=== PATIENT | female | born 1980 | race African-American/Black ===

== ENCOUNTER 2018-11-07 06:00 | Emergency (ER) | payer SELFPAY ==
[2018-11-07] MEDS ORDERED: ASPIRIN 81 MG TABLET, CHEWABLE PO ONE (06:57)
[2018-11-07 07:11] LABS: ABSOLUTE BASOPHILS # (AUTO) 0.1 10^3/uL (0.0-0.2); ABSOLUTE EOSINOPHILS # (AUTO) 0.1 10^3/uL (0.0-0.6); ABSOLUTE LYMPHOCYTES (AUTO) 1.7 10^3/uL (0.5-4.7); ABSOLUTE MONOCYTES (AUTO) 0.4 10^3/uL (0.1-1.4); ABSOLUTE NEUT (AUTO) 5.9 10^3/uL (1.7-8.2); BASOPHILS % (AUTO) 0.7 % (0-2); EOSINOPHILS % (AUTO) 1.2 % (0-6); HEMATOCRIT 36.5 % (36.0-47.0); HEMOGLOBIN 12.5 g/dL (12.0-15.5); LYMPHOCYTES % (AUTO) 20.8 % (13-45); MEAN CORPUSCULAR HEMOGLOBIN 26.1 pg (27.0-33.4); MEAN CORPUSCULAR HGB CONC 34.2 g/dL (32.0-36.0); MEAN CORPUSCULAR VOLUME 76 fl (80-97); MONOCYTES % (AUTO) 4.7 % (3-13); PLATELET COUNT 250 10^3/uL (150-450); RED BLOOD COUNT 4.78 10^6/uL (3.72-5.28); RED CELL DISTRIBUTION WIDTH 13.3 % (11.5-14.0); SEGMENTED NEUTROPHILS % (AUTO) 72.6 % (42-78); TOTAL CELLS COUNTED % (AUTO) 100 %; WHITE BLOOD COUNT 8.2 10^3/uL (4.0-10.5)
--- NOTE | 2018-11-07 07:28 | ER Document Report ---
ED Cardiac - General Chief Complaint: Palpitations Stated Complaint: HEART PALPITATIONS Time Seen by Provider: 11/07/18 07:06 Mode of Arrival: Ambulatory Information source: Patient, [facility] Records Notes: This 38-year-old female patient comes emergency room complaining of palpitations. She noted yesterday morning when she got up she was having a fluttering in the chest and palpitations. Patient did stop before going to work, and then came back after she got home from work later that day. They have been occurring off and on since then. She is currently on metoprolol succinate 25 mg once daily, HCTZ 12.5 mg once daily, and amlodipine probably 10 mg once daily. She has run out of the aml odipine for the past week. She reports several months ago she had episode of her heart racing and ir regular, at that time she had run out of her metoprolol. Patient reports she takes her medications in the morning, but has not taken them yet today. At this time her heart rate is about 88, she has an occasional PVC and feels that as a flutter or flip-flop in her chest. The patient will be instructed to take her metoprolol and hydrochlorothiazide at this time. TRAVEL OUTSIDE OF THE [place] IN LAST 30 DAYS: No - Related Data Allergies/Adverse Reactions: No Known Allergies Allergy (Verified 02/28/13 02:13) Past Medical History - General Information source: Patient - Social History Smoking Status: Never Smoker Cigarette use (# per day): No Chew tobacco use (# tins/day): No Smoking Education Provided: No Frequency of alcohol use: None Occupation: Works at [employer] Lives with: Family Family History: None Patient has suicidal ideation: No Patient has homicidal ideation: No - Past Medical History Cardiac Medical History: Reports: Hx Hypertension Past Surgical History: Reports: Hx Section - Immunizations Hx Diphtheria, Pertussis, Tetanus Vaccination: Yes Review of Systems - Review of Systems Constitutional: No symptoms reported EENT: No symptoms reported Cardiovascular: No symptoms reported Respiratory: No symptoms reported Gastrointestinal: No symptoms reported Genitourinary: No symptoms reported Female Genitourinary: Last menstrual period - 10/25/2018 Musculoskeletal: No symptoms reported Skin: No symptoms reported Hematologic/Lymphatic: No symptoms reported Neurological/Psychological: No symptoms reported Physical Exam - Vital signs Vitals: Temp Pulse Resp BP Pulse Ox 98.7 F 87 17 154/94 H 100 11/07/18 06:18 11/07/18 06:18 11/07/18 06:18 11/07/18 06:18 11/07/18 06:18 Interpretation: Normal - General General appearance: Appears well, Alert In distress: None - HEENT Head: Normocephalic, Atraumatic Eyes: Normal Pupils: PERRL - Respiratory Respiratory status: No respiratory distress Breath sounds: Normal - Cardiovascular Rhythm: Regular Heart sounds: Normal auscultation Murmur: No - Abdominal Inspection: Normal Bowel sounds: Normal Tenderness: Nontender - Back Back: Normal - Extremities General upper extremity: Normal inspection General lower extremity: Normal inspection - Neurological Neuro grossly intact: Yes - Psychological Associated symptoms: Normal affect, Normal mood Course - Vital Signs Vital signs: Temp Pulse Resp BP Pulse Ox 98.7 F 87 21 H 146/93 H 100 11/07/18 06:18 11/07/18 06:18 11/07/18 08:01 11/07/18 07:01 11/07/18 08:01 - Laboratory Result Diagrams: 11/07/18 06:01 11/07/18 06:01 Laboratory results interpreted by me: 11/07/18 11/07/18 11/07/18 06:01 06:01 07:34 MCV 76 L MCH 26.1 L Potassium 3.1 L Urine Blood MODERATE H Ur Leukocyte Esterase TRACE H - EKG Interpretation by Ks EKG shows normal: Sinus rhythm, [place], Intervals, QRS Complexes, ST-T Waves Rate: Normal - 85 Rhythm: NSR, PVC's Discharge - Discharge Clinical Impression: Heart palpitations High blood pressure Qualifiers: Hypertension type: essential hypertension Qualified Code(s): I10 - Essential (primary) hypertension Condition: Stable Disposition: HOME, SELF-CARE Additional Instructions: Palpitations (Irregular/Rapid Heartrate) Irregular or rapid heartbeat is called "palpitation." To diagnose the cause of palpitation, we have to "catch it in the act" with an EKG. Sinus Tachycardia: This is a rapid (but NORMAL) rhythm that can be due to fever, pain, anxiety, lack of sleep, over-exertion, or drugs. Cold medications, caffeine, and diet pills are particularly likely to cause tachycardia. Usually, all that's required is rest, reassurance, and avoiding caffeine, alcohol, nicotine, and unnecessary medicines. Paroxysmal Atrial Tachycardia (PAT): This abnormally rapid heartbeat is caused by a "short circuit" in the electrical system of the heart. It is not dangerous, unless other heart disease is present. These attacks of PAT may occur occasionally for years. Medication is available for treatment. Paroxysmal Atrial Fibrillation or Atrial Flutter: This is irregular electrical activity in the upper heart chamber. These abnormal rhythms often occur with valve disease or in hearts damaged by hardening of the arteries. These rhythms usually require further testing, for example a cardiac echo. Premature Beats: Extra beats occur more commonly after caffeine, nicotine, alcohol, cold pills, diet pills. Emotional stress or fatigue also provoke them. Extra beats are only dangerous when heart disease is present. They usually need no treatment. If they're frequent, or if evidence of heart disease develops, medication can be given to suppress them. If we were unable to "catch" the palpitations on EKG, you should try to get an EKG immediately if the symptoms begin again. Contact the physician at once if you develop persistent lightheadedness, shortness of breath, chest pain, or swelling of the ankles. Your EKG did show premature ventricular contraction also called a PVC. This would give you the feeling that your heart was fluttering or flip-flopping. There was no other rhythm disturbance noted while watching you on a monitor for well over an hour. Increase your metoprolol dose to twice daily. This should help reduce the frequency of your irregular heartbeats, and help with your blood pressure. Drink plenty of fluids, get plenty of rest, and avoid caffeine, diet pills, or any other stimulant type medications. Follow-up with your primary care provider next week for recheck. RETURN TO THE EMERGENCY ROOM IF ANY NEW OR WORSENING SYMPTOMS.
--- NOTE | 2018-11-07 07:48 | RADIOLOGY REPORT (SQ) ---
EXAM DESCRIPTION: X-ray single view chest. CLINICAL HISTORY: 38 years Female, CP COMPARISON: 12/27/2010 TECHNIQUE: Single portable x-ray view of the chest performed on 11/07/2018 at 7:29 AM FINDINGS: The lungs are well expanded and are clear. There is no evidence of a pneumothorax. The cardiac silhouette is normal in size and configuration. The mediastinal contours are normal. No acute osseous abnormality is identified. No focal soft tissue abnormalities are seen. Lines and tubes: None. IMPRESSION: No evidence of acute intrathoracic disease.
[2018-11-07 07:55] LABS: ALANINE AMINOTRANSFERASE 21 U/L (9-52); ALBUMIN 4.1 g/dL (3.5-5.0); ALKALINE PHOSPHATASE 60 U/L (38-126); ANION GAP 10 (5-19); ASPARTATE AMINO TRANSFERASE 17 U/L (14-36); BILIRUBIN,DIRECT 0.3 mg/dL (0.0-0.4); BILIRUBIN,TOTAL 0.4 mg/dL (0.2-1.3); BLOOD UREA NITROGEN 12 mg/dL (7-20); CALCIUM 9.7 mg/dL (8.4-10.2); CARBON DIOXIDE 29 mmol/L (22-30); CHLORIDE 101 mmol/L (98-107); CREATINE KINASE 74 U/L (30-135); GLUCOSE 105 mg/dL (75-110); POTASSIUM 3.1 mmol/L (3.6-5.0); SODIUM 140.3 mmol/L (137-145); TOTAL PROTEIN 7.6 g/dL (6.3-8.2)
[2018-11-07 07:59] LABS: APPEARANCE,URINE CLEAR; BILIRUBIN,URINE NEGATIVE (NEGATIVE); COLOR,URINE STRAW; GLUCOSE, URINE NEGATIVE (NEGATIVE); KETONES,URINE NEGATIVE (NEGATIVE); LEUKOCYTE ESTERASE,URINE TRACE (NEGATIVE); NITRITE,URINE NEGATIVE (NEGATIVE); PROTEIN,URINE NEGATIVE (NEGATIVE); URINE SPECIFIC GRAVITY 1.004; UROBILINOGEN,URINE NEGATIVE mg/dL (<2.0)
[2018-11-07 08:05] LABS: CREATINE KINASE MB 0.37 ng/mL (<4.55); TROPONIN I < 0.012 ng/mL
[2018-11-07 09:17] VITALS: BP 147/99
--- NOTE | 2018-11-07 23:48 | EKG REPORT ---
SEVERITY:- OTHERWISE NORMAL ECG - SINUS RHYTHM VENTRICULAR PREMATURE COMPLEX : Confirmed by: Gemma Stock MD 07-Nov-2018 23:47:39
== END 2018-11-07 09:16 | disposition home or self-care (01) ==
LOC: ER 06:00
DX: R00.2 Palpitations (principal); I10 Essential (primary) hypertension; Z79.899 Other long term (current) drug therapy
CPT/HCPCS: 36415; 71045; 80053; 81001; 82550; 82553; 83735; 84484; 84703; 85025; 93005; 93010; 99285

== ENCOUNTER 2019-08-17 08:42 | Emergency (ER) | payer SELFPAY ==
--- NOTE | 2019-08-17 08:50 | ER Document Report ---
ED General - General Chief Complaint: Chest Pain Stated Complaint: CHEST PAIN Time Seen by Provider: 08/17/19 08:50 TRAVEL OUTSIDE OF THE [place] IN LAST 30 DAYS: No - HPI Patient complains to provider of: Palpitations Notes: 39-year-old female with history of SVT presents with severe palpitations at home. Patient woke up in her normal state of health took her daughter to school when she got back home she laid down. Patient suddenly felt her heart "racing". Contacted EMS. EMS arrived to find patient heart rate greater than 170. IV established give IV push dose 6 mg of adenosine. Quickly patient returns to sinus tach rhythm. Patient has no symptoms at this time says she feels markedly improved. Patient has not had an episode of SVT in about a year. She takes daily metoprolol 25 mg but was told several months ago they believe she has to go up on her metoprolol but they never changed her prescription. Denies fever chills cough or chest pain. - Related Data Allergies/Adverse Reactions: No Known Allergies Allergy (Verified 02/28/13 02:13) Past Medical History - Social History Smoking Status: Unknown if Ever Smoked Family History: None - Past Medical History Cardiac Medical History: Reports: Hx Hypertension Renal/ Medical History: Denies: Hx Peritoneal Dialysis Past Surgical History: Reports: Hx Section - Immunizations Hx Diphtheria, Pertussis, Tetanus Vaccination: Yes Review of Systems - Review of Systems Notes: REVIEW OF SYSTEMS: CONSTITUTIONAL: -fevers, -chills EENT: -eye pain, -difficulty swallowing, -nasal congestion CARDIOVASCULAR: -chest pain, -syncope. RESPIRATORY: -cough, -SOB GASTROINTESTINAL: -abdominal pain, -nausea, -vomiting, -diarrhea GENITOURINARY: -dysuria, -hematuria MUSCULOSKELETAL: -back pain, -neck pain SKIN: -rash or skin lesions. HEMATOLOGIC: -easy bruising or bleeding. LYMPHATIC: -swollen, enlarged glands. NEUROLOGICAL: -altered mental status or loss of consciousness, -headache, - neurologic symptoms PSYCHIATRIC: -anxiety, -depression. ALL OTHER SYSTEMS REVIEWED AND NEGATIVE. Physical Exam - Vital signs Vitals: Resp Pulse Ox 19 97 08/17/19 08:52 08/17/19 08:52 - Notes Notes: PHYSICAL EXAMINATION: GENERAL: Well-appearing, well-nourished and in no acute distress. HEAD: Atraumatic, normocephalic. EYES: Pupils equal round and reactive to light, extraocular movements intact, sclera anicteric, conjunctiva are normal. ENT: nares patent, oropharynx clear without exudates. Moist mucous membranes. NECK: Normal range of motion, supple without lymphadenopathy LUNGS: Breath sounds clear to auscultation bilaterally and equal. No wheezes rales or rhonchi. HEART: Tachycardia and rhythm without murmurs ABDOMEN: Soft, nontender, normoactive bowel sounds. No guarding, no rebound. No masses appreciated. EXTREMITIES: Normal range of motion, no pitting or edema. No cyanosis. NEUROLOGICAL: Cranial nerves grossly intact. Normal speech, normal gait. N ormal sensory and motor exams. PSYCH: Normal mood, normal affect. SKIN: Warm, Dry, normal turgor, no rashes or lesions noted. Course - Re-evaluation Re-evalutation: 08/17/19 09:09 Well-appearing 39-year-old female presents now with resolved episode of SVT. Patient will receive fluid resuscitation IV metoprolol. Mild tachycardia presents EKG is no ischemic changes. 08/17/19 10:38 Of lab work-up shows no gross abnormalities negative troponin, lites within normal limits. Patient be encouraged to double up on her daily metoprolol follow-up PCP and cardiology return if any worsening or changes. - Vital Signs Vital signs: Temp Pulse Resp BP Pulse Ox 21 H 160/120 H 98 08/17/19 08:53 08/17/19 08:53 08/17/19 08:53 - Laboratory Result Diagrams: 08/17/19 09:22 08/17/19 09:22 Laboratory results interpreted by me: 08/17/19 08/17/19 09:22 09:22 MCV 77 L MCH 25.9 L Potassium 3.5 L - EKG Interpretation by Me Additional EKG results interpreted by me: 08/17/19 09:09 Sinus tachycardia, no ST elevations or depressions, no pathologic T wave inversions, normal IA interval, normal QRS Discharge - Discharge Clinical Impression: SVT (supraventricular tachycardia) Condition: Stable Disposition: HOME, SELF-CARE Instructions: Paroxysmal Supraventricular Tachycardia ([facility]) Additional Instructions: Increase your metoprolol to 50 mg daily follow-up cardiology and PCP
[2019-08-17] MEDS ORDERED: NORMAL SALINE 1000 ML 1,000 ML IV ONE (09:01)
[2019-08-17] MEDS ORDERED: METOPROLOL TARTRATE PF/INJ 5 MG/5 ML SDV IV ONE (09:05)
[2019-08-17 09:41] LABS: ABSOLUTE BASOPHILS # (AUTO) 0.1 10^3/uL (0.0-0.2); ABSOLUTE EOSINOPHILS # (AUTO) 0.2 10^3/uL (0.0-0.6); ABSOLUTE LYMPHOCYTES (AUTO) 2.1 10^3/uL (0.5-4.7); ABSOLUTE MONOCYTES (AUTO) 0.5 10^3/uL (0.1-1.4); BASOPHILS % (AUTO) 0.7 % (0-2); EOSINOPHILS % (AUTO) 2.1 % (0-6); HEMOGLOBIN 12.9 g/dL (12.0-15.5); LYMPHOCYTES % (AUTO) 23.9 % (13-45); MEAN CORPUSCULAR HEMOGLOBIN 25.9 pg (27.0-33.4); MEAN CORPUSCULAR HGB CONC 33.9 g/dL (32.0-36.0); MEAN CORPUSCULAR VOLUME 77 fl (80-97); MONOCYTES % (AUTO) 5.8 % (3-13); PLATELET COUNT 258 10^3/uL (150-450); RED BLOOD COUNT 4.96 10^6/uL (3.72-5.28); RED CELL DISTRIBUTION WIDTH 13.6 % (11.5-14.0); SEGMENTED NEUTROPHILS % (AUTO) 67.5 % (42-78); TOTAL CELLS COUNTED % (AUTO) 100 %; WHITE BLOOD COUNT 8.9 10^3/uL (4.0-10.5)
[2019-08-17 09:57] LABS: ANION GAP 10 (5-19); BLOOD UREA NITROGEN 14 mg/dL (7-20); CALCIUM 9.4 mg/dL (8.4-10.2); CARBON DIOXIDE 28 mmol/L (22-30); CHLORIDE 101 mmol/L (98-107); GLUCOSE 101 mg/dL (75-110); POTASSIUM 3.5 mmol/L (3.6-5.0)
[2019-08-17 10:10] LABS: TROPONIN I 0.017 ng/mL
[2019-08-17 11:37] VITALS: BP 165/87
--- NOTE | 2019-08-17 12:06 | EKG REPORT ---
SEVERITY:- ABNORMAL ECG - SINUS TACHYCARDIA LEFT VENTRICULAR HYPERTROPHY : Confirmed by: Fracisco Jordan 17-Aug-2019 12:05:15
== END 2019-08-17 11:35 | disposition home or self-care (01) ==
LOC: ER 08:42
DX: I47.1 Supraventricular tachycardia (principal); I10 Essential (primary) hypertension; Z79.899 Other long term (current) drug therapy
CPT/HCPCS: 93005; 99285; 96361; 96374; 36415; 85025; 80048; 84484; 83880; 93010; J3490; J7030

== ENCOUNTER 2019-09-14 17:16 | Emergency (ER) | payer SELFPAY ==
--- NOTE | 2019-09-14 17:32 | ER Document Report ---
ED Medical Screen (RME) - General Chief Complaint: OB Problem (<20wks) Stated Complaint: VAGINAL BLEEDING,ABDOMINAL PAIN Time Seen by Provider: 09/14/19 17:26 Notes: HPI: 39-year-old female who is a G2, approximately 7 weeks gestation by dates presenting for vaginal bleeding this afternoon. Started with slight spotting this morning which stopped and then began again with darker blood this afternoon accompanied by some cramping. Denies back pain. Has not seen [employer] yet. Patient went to the health department today. Patient states that she does have a history of high blood pressure she is on metoprolol and HCTZ has not yet seen OB to discuss whether she should continue these medications or switch to something different. She states she has been taking her medications consistently I have greeted and performed a rapid initial assessment of this patient. A comprehensive ED assessment and evaluation of the patient, analysis of test results and completion of the medical decision making process will be conducted by additional ED providers PHYSICAL EXAMINATION: Patient is moderately hypertensive. Lung sounds are clear to auscultation regular rate and rhythm. No pelvic pain on palpation of the abdomen limited exam secondary to positioning in triage. exam deferred in triage I have greeted and performed a rapid initial assessment of this patient. A comprehensive ED assessment and evaluation of the patient, analysis of test results and completion of medical decision making process will be conducted by an additional ED providers. TRAVEL OUTSIDE OF THE [place] IN LAST 30 DAYS: No - Related Data Allergies/Adverse Reactions: No Known Allergies Allergy (Verified 09/14/19 17:25) Past Medical History - Social History Chew tobacco use (# tins/day): No Frequency of alcohol use: None Drug Abuse: None - Past Medical History Cardiac Medical History: Reports: Hx Hypertension Renal/ Medical History: Denies: Hx Peritoneal Dialysis Past Surgical History: Reports: Hx Section - Immunizations Hx Diphtheria, Pertussis, Tetanus Vaccination: Yes Physical Exam - Vital signs Vitals: Temp Pulse Resp BP Pulse Ox 98.1 F 87 16 180/114 H 100 09/14/19 17:20 09/14/19 17:20 09/14/19 17:20 09/14/19 17:20 09/14/19 17:20 Course - Vital Signs Vital signs: Temp Pulse Resp BP Pulse Ox 98.1 F 87 16 158/105 H 100 09/14/19 17:20 09/14/19 17:20 09/14/19 17:20 09/14/19 17:22 09/14/19 17:20
[2019-09-14 18:11] LABS: ABSOLUTE EOSINOPHILS # (AUTO) 0.2 10^3/uL (0.0-0.6); ABSOLUTE LYMPHOCYTES (AUTO) 2.4 10^3/uL (0.5-4.7); ABSOLUTE MONOCYTES (AUTO) 0.5 10^3/uL (0.1-1.4); ABSOLUTE NEUT (AUTO) 7.2 10^3/uL (1.7-8.2); BASOPHILS % (AUTO) 0.4 % (0-2); EOSINOPHILS % (AUTO) 1.7 % (0-6); HEMATOCRIT 37.3 % (36.0-47.0); HEMOGLOBIN 12.9 g/dL (12.0-15.5); LYMPHOCYTES % (AUTO) 23.3 % (13-45); MEAN CORPUSCULAR HEMOGLOBIN 26.6 pg (27.0-33.4); MEAN CORPUSCULAR HGB CONC 34.7 g/dL (32.0-36.0); MEAN CORPUSCULAR VOLUME 77 fl (80-97); MONOCYTES % (AUTO) 4.8 % (3-13); PLATELET COUNT 247 10^3/uL (150-450); RED BLOOD COUNT 4.86 10^6/uL (3.72-5.28); RED CELL DISTRIBUTION WIDTH 14.3 % (11.5-14.0); SEGMENTED NEUTROPHILS % (AUTO) 69.8 % (42-78); TOTAL CELLS COUNTED % (AUTO) 100 %; WHITE BLOOD COUNT 10.3 10^3/uL (4.0-10.5)
[2019-09-14 18:22] LABS: APPEARANCE,URINE CLOUDY; BILIRUBIN,URINE NEGATIVE (NEGATIVE); COLOR,URINE RED; GLUCOSE, URINE NEGATIVE (NEGATIVE); KETONES,URINE NEGATIVE (NEGATIVE); LEUKOCYTE ESTERASE,URINE LARGE (NEGATIVE); NITRITE,URINE NEGATIVE (NEGATIVE); PROTEIN,URINE 100 mg/dL (NEGATIVE); URINE SPECIFIC GRAVITY 1.008; UROBILINOGEN,URINE NEGATIVE mg/dL (<2.0)
[2019-09-14 18:30] LABS: ALBUMIN 4.6 g/dL (3.5-5.0); ALKALINE PHOSPHATASE 61 U/L (38-126); ANION GAP 10 (5-19); ASPARTATE AMINO TRANSFERASE 21 U/L (14-36); BILIRUBIN,DIRECT 0.2 mg/dL (0.0-0.4); BILIRUBIN,TOTAL 0.4 mg/dL (0.2-1.3); BLOOD UREA NITROGEN 12 mg/dL (7-20); CALCIUM 10.3 mg/dL (8.4-10.2); CARBON DIOXIDE 26 mmol/L (22-30); CHLORIDE 99 mmol/L (98-107); GLUCOSE 91 mg/dL (75-110); POTASSIUM 3.2 mmol/L (3.6-5.0); TOTAL PROTEIN 8.3 g/dL (6.3-8.2)
--- NOTE | 2019-09-14 18:40 | ER Document Report ---
ED GI/ - General Chief Complaint: OB Problem (<20wks) Stated Complaint: VAGINAL BLEEDING,ABDOMINAL PAIN Time Seen by Provider: 09/14/19 17:26 Primary Care Provider: [facility] [Provider Group] - Follow up as needed Mode of Arrival: Ambulatory Information source: Patient Notes: 39-year-old female presents to ED for complaint of pelvic pain and vaginal bleeding. She states she is 7 weeks according to dates. She has had positive home test has not been to an [employer] as yet. She is 2 para 1. She states about a week or so ago she had some spotting that stopped. She states this afternoon she had some spotting and cramping but the bleeding and cramping have stopped. She states only past medical history is high blood pressure which she takes metoprolol and hydrochlorothiazide for. Patient is alert oriented respirations regular nonlabored speaking in full sentences. TRAVEL OUTSIDE OF THE [place] IN LAST 30 DAYS: No - HPI Patient complains to provider of: Pelvic pain, , Vaginal bleeding Onset: Other - States she had some spotting about a week or so ago and then started this afternoon Timing/Duration: Intermittent Quality of pain: Cramping Severity at maximum: Mild Severity in ED: None Pain Level: Denies Vaginal bleeding (Compared to normal period): Spotting, Dark brown Menstrual period history: Associated symptoms: Other - Pelvic pain and vaginal spotting Exacerbated by: Denies Relieved by: Denies Similar symptoms previously: Yes Recently seen / treated by doctor: No - Related Data Allergies/Adverse Reactions: No Known Allergies Allergy (Verified 09/14/19 17:25) Past Medical History - General Information source: Patient - Social History Smoking Status: Former Smoker Chew tobacco use (# tins/day): No Frequency of alcohol use: None Drug Abuse: None Family History: None Patient has suicidal ideation: No Patient has homicidal ideation: No - Past Medical History Cardiac Medical History: Reports: Hx Hypertension Pulmonary Medical History: Reports: None EENT Medical History: Reports: None Neurological Medical History: Reports: None Endocrine Medical History: Reports: None Renal/ Medical History: Reports: None Malignancy Medical History: Reports: None GI Medical History: Reports: None Musculoskeletal Medical History: Reports None Skin Medical History: Reports None Psychiatric Medical History: Reports: None Traumatic Medical History: Reports: None Infectious Medical History: Reports: None Surgical Hx: Negative Past Surgical History: Reports: None - Immunizations Hx Diphtheria, Pertussis, Tetanus Vaccination: Yes Review of Systems - Review of Systems Constitutional: No symptoms reported EENT: No symptoms reported Cardiovascular: No symptoms reported Respiratory: No symptoms reported Gastrointestinal: No symptoms reported Genitourinary: No symptoms reported Female Genitourinary: , Vaginal bleeding Musculoskeletal: No symptoms reported Skin: No symptoms reported Hematologic/Lymphatic: No symptoms reported Neurological/Psychological: No symptoms reported Physical Exam - Vital signs Vitals: Temp Pulse Resp BP Pulse Ox 98.1 F 87 16 180/114 H 100 09/14/19 17:20 09/14/19 17:20 09/14/19 17:20 09/14/19 17:20 09/14/19 17:20 Interpretation: Normal - General General appearance: Appears well, Alert - HEENT Head: Normocephalic, Atraumatic Eyes: Normal Pupils: PERRL - Respiratory Respiratory status: No respiratory distress Chest status: Nontender Breath sounds: Normal Chest palpation: Normal - Cardiovascular Rhythm: Regular Heart sounds: Normal auscultation Murmur: No - Abdominal Inspection: Normal Distension: No distension Bowel sounds: Normal Tenderness: Nontender Organomegaly: No organomegaly - Genitourinary External exam: Normal Speculum exam: Cervix closed Vaginal bleeding: Mild Bimanuel exam: Normal - Back Back: Normal, Nontender - Extremities General upper extremity: Normal inspection, Nontender, Normal color, Normal ROM, Normal temperature General lower extremity: Normal inspection, Nontender, Normal color, Normal ROM, Normal temperature, Normal weight bearing. No: Anuja's sign - Neurological Neuro grossly intact: Yes Cognition: Normal Orientation: AAOx4 Tammy Coma Scale Eye Opening: Spontaneous Tammy Coma Scale Verbal: Oriented Tammy Coma Scale Motor: Obeys Commands [place] Coma Scale Total: 15 Speech: Normal Motor strength normal: LUE, RUE, LLE, RLE Sensory: Normal - Psychological Associated symptoms: Normal affect, Normal mood - Skin Skin Temperature: Warm Skin Moisture: Dry Skin Color: Normal Course - Re-evaluation Re-evalutation: 09/14/19 22:50 Discussed ultrasound and labs with patient and written reports of labs and ultrasound given to patient to follow-up with her primary care and PHYSICIAN. Patient is a high risk at 39 years old with multiple fibroids and a subchorionic bleed. I have instructed her that she needs to follow-up with [employer] or the health department as soon as possible. Patient was able to verbalize understanding and agreement with this treatment plan. Patient also has elevated blood pressure that she needs to get under control. She states she has not been to a doctor in about a year. She does verbalize understanding that she needs to be seen promptly. Patient states she will call the health department tomorrow to get into see someone for the blood pressure and the high risk . - Vital Signs Vital signs: Temp Pulse Resp BP Pulse Ox 98.3 F 77 18 158/100 H 100 09/14/19 20:34 09/14/19 20:34 09/14/19 20:34 09/14/19 20:34 09/14/19 20:34 - Laboratory Result Diagrams: 09/14/19 17:34 09/14/19 17:34 Laboratory results interpreted by me: 09/14/19 09/14/19 09/14/19 17:34 17:34 17:34 MCV 77 L MCH 26.6 L RDW 14.3 H Sodium 134.9 L Potassium 3.2 L Calcium 10.3 H Total Protein 8.3 H Beta HCG, Quant 57314.00 H Urine Protein 100 H Urine Blood LARGE H Ur Leukocyte Esterase LARGE H - Diagnostic Test Radiology reviewed: Image reviewed, Reports reviewed Discharge - Discharge Clinical Impression: Vaginal bleeding affecting early High blood pressure Qualifiers: Hypertension type: unspecified Qualified Code(s): I10 - Essential (primary) hypertension Condition: Stable Disposition: HOME, SELF-CARE Instructions: [facility] [place] Additional Instructions: : You are . care is best started as early in as possible. If you're unsure about continuing this , you should discuss this with your physician or with international student advisor at [facility]. You should take only medications approved by your physician. Acetaminophen can safely be taken for minor pains. As a rule, medication for chronic conditions such as asthma or seizures can safely be continued. You should discuss with the physician every medicine you take. Any regular exercise program can be continued. Talk to your physician, however, before engaging in competitive or demanding sports. Alcohol, smoking, and "street drugs" are dangerous to your baby. Cocaine is especially dangerous. Don't use any illicit drugs! BLEEDING DURING EARLY : You have been evaluated for passing blood while . While we take this symptom very seriously, most women with your degree of bleeding will go on to have a perfectly normal baby. At this time, there is no indication that a miscarriage will occur. (A miscarriage occurs when the fetus is abnormal. There is no medicine or treatment to prevent it.) A more serious cause of bleeding is tubal (or ectopic) . An ultrasound usually can show whether the is in the uterus or in the tube. Sometimes in early , no fetus is seen. In this case, careful follow-up, including repeat blood tests and repeat ultrasound, is necessary. Do not douche or have sex for at least a week, or until OK'd by the doctor. Don't use tampons. Call the doctor or return for re-examination if there is an increase in bleeding or cramping, extreme weakness, fainting, new abdominal pain, fever, or passage of tissue. You are 39 years old and . You have a large subchorionic bleed at this time. You also have fibroids in your uterus. It is very important that you follow-up with an [employer] and a primary care doctor concerning your vaginal bleeding and your high blood pressure. He states you have been taking blood pressure medicine that your previous doctor has ordered you but has not seen you in over a year. It is very important that she get this blood pressure under control with this . Please also follow-up with the Medicaid and get this straightened out so you can go to the doctor. FOLLOW-UP CARE: If you have been referred to a physician for follow-up care, call the physicians office for an appointment as you were instructed or within the next two days. If you experience worsening or a significant change in your symptoms (very heavy bleeding with large clots of blood, passage of tissue, more severe abdominal / pelvic pain or cramping, feeling faint or severe weakness, fever, etc.), notify the physician immediately or return to the Emergency Department at any time for re-evaluation. OBSTETRIC-GYNECOLOGIC (OB-PHYSICIAN) PHYSICIANS IN [place]: [facility] [address] [place] [address] [phone] For active duty and dependents diagnosed with a threatened or miscarriage, you should follow up in the following manner: Standard patients who have a local civilian provider should follow up with that provider. Patients of the Family Practice Clinic should call your Team Nurse at 8:00 am the following morning for further instructions. If you are neither a Standard patient nor a patient of the Family Practice Clinic, you should follow up at the [facility] ([facility]). Patients already enrolled in the [facility], Prime patients not assigned to the Family Practice Clinic, and Active Duty patients not assigned to Family Practice Clinic should report to the [facility] Lab at 8:00 am the next morning that the [facility] is open and then you will be seen in the OB Clinic at 11:00 am. Forms: Elevated Blood Pressure, Return to Work Referrals: [facility] [Provider Group] - Follow up as needed
--- NOTE | 2019-09-14 18:46 | RADIOLOGY REPORT (SQ) ---
EXAM DESCRIPTION: U/S OB TRANSVAG W/DOPPLER IMAGES COMPLETED DATE/TIME: 09/14/2019 6:32 pm REASON FOR STUDY: vag bleeding COMPARISON: None. TECHNIQUE: Transvaginal static and realtime grayscale images acquired of the pelvis. Additional darrell cted spectral and color Doppler images recorded. All images stored on PACs. bHCG: Pending CLINICAL DATES: LMP 07/29/2019. 6 weeks 5 days. LIMITATIONS: None. FINDINGS: FETUS: Single Living intrauterine . ULTRASOUND EGA: 5 weeks 6 days ULTRASOUND ELVIE: 05/10/2020 EFW: Not applicable less than 20 weeks. CRL: 0.3 cm FHR: 122 beats per minute. SURVEY: Too early to assess. AMNIOTIC FLUID: Adequate amount. PLACENTA: Not yet developed due to early gestation. SUBCHORIONIC BLEED: Yes SIZE OF BLEED: 16 x 10 x 4 mm UTERUS: Multiple fibroids. The largest measures 6 cm. CERVICAL LENGTH: 2.6 cm Closed. RIGHT ADNEXA: Normal ovary with normal vascular flow. 2.8 x 2.1 x 1.8 cm. No adnexal free fluid. No adnexal masses. LEFT ADNEXA: Normal ovary with normal vascular flow. 3.1 x 2 x 2.3 cm. No adnexal free fluid. No adnexal masses. FREE FLUID: None. OTHER: No other significant finding. IMPRESSION: LIVING INTRAUTERINE . EGA 5 weeks 6 days. Trimester of : First trimester - 0 to 13 weeks. TECHNICAL DOCUMENTATION: JOB ID: [id number] 2010 [employer]- All Rights Reserved rev Reading location - IP/workstation name: [email or web address]
[2019-09-14 19:35] LABS: BACTERIA (WET MOUNT) 3+ BACTERIA SEEN; RBCS (WET MOUNT) 4+ RBCS SEEN; T.VAGINALIS (WET MOUNT) NO TRICHOMONAS SEEN; WBCS (WET MOUNT) 3+ WBCS SEEN; YEAST (WET MOUNT) NO YEAST SEEN
[2019-09-14 20:36] VITALS: BP 158/100
[2019-09-14 21:04] LABS: CHLAM PCR NOT DETECTED (NOT DETECT)
== END 2019-09-14 20:36 | disposition home or self-care (01) ==
LOC: ER 17:16
DX: O20.9 Hemorrhage in early pregnancy, unspecified (principal); O16.1 Unspecified maternal hypertension, first trimester; Z3A.01 Less than 8 weeks gestation of pregnancy
CPT/HCPCS: 36415; 76817; 80053; 81001; 84702; 85025; 86900; 86901; 87210; 87491; 87591; 93976; 99284

== ENCOUNTER 2019-10-04 05:30 | Emergency (ER) | payer MEDICAID ==
[2019-10-04 06:14] LABS: APPEARANCE,URINE SLIGHTLY-CLOUDY; BILIRUBIN,URINE NEGATIVE (NEGATIVE); COLOR,URINE YELLOW; GLUCOSE, URINE NEGATIVE (NEGATIVE); KETONES,URINE NEGATIVE (NEGATIVE); LEUKOCYTE ESTERASE,URINE MODERATE (NEGATIVE); NITRITE,URINE NEGATIVE (NEGATIVE); PROTEIN,URINE NEGATIVE (NEGATIVE); URINE SPECIFIC GRAVITY 1.018; UROBILINOGEN,URINE NEGATIVE mg/dL (<2.0)
[2019-10-04 06:46] LABS: ABSOLUTE EOSINOPHILS # (AUTO) 0.2 10^3/uL (0.0-0.6); ABSOLUTE LYMPHOCYTES (AUTO) 1.8 10^3/uL (0.5-4.7); ABSOLUTE MONOCYTES (AUTO) 0.5 10^3/uL (0.1-1.4); ABSOLUTE NEUT (AUTO) 6.4 10^3/uL (1.7-8.2); BASOPHILS % (AUTO) 0.4 % (0-2); EOSINOPHILS % (AUTO) 1.8 % (0-6); HEMATOCRIT 34.4 % (36.0-47.0); HEMOGLOBIN 11.9 g/dL (12.0-15.5); LYMPHOCYTES % (AUTO) 20.5 % (13-45); MEAN CORPUSCULAR HEMOGLOBIN 26.5 pg (27.0-33.4); MEAN CORPUSCULAR HGB CONC 34.5 g/dL (32.0-36.0); MEAN CORPUSCULAR VOLUME 77 fl (80-97); MONOCYTES % (AUTO) 5.5 % (3-13); PLATELET COUNT 201 10^3/uL (150-450); RED BLOOD COUNT 4.48 10^6/uL (3.72-5.28); RED CELL DISTRIBUTION WIDTH 14.8 % (11.5-14.0); SEGMENTED NEUTROPHILS % (AUTO) 71.8 % (42-78); TOTAL CELLS COUNTED % (AUTO) 100 %; WHITE BLOOD COUNT 8.9 10^3/uL (4.0-10.5)
[2019-10-04 07:03] LABS: ALKALINE PHOSPHATASE 50 U/L (38-126); ANION GAP 9 (5-19); ASPARTATE AMINO TRANSFERASE 16 U/L (14-36); BILIRUBIN,TOTAL 0.3 mg/dL (0.2-1.3); BLOOD UREA NITROGEN 16 mg/dL (7-20); CALCIUM 9.4 mg/dL (8.4-10.2); CARBON DIOXIDE 25 mmol/L (22-30); CHLORIDE 99 mmol/L (98-107); GLUCOSE 101 mg/dL (75-110); POTASSIUM 3.4 mmol/L (3.6-5.0); TOTAL PROTEIN 7.1 g/dL (6.3-8.2)
--- NOTE | 2019-10-04 07:11 | RADIOLOGY REPORT (SQ) ---
Ultrasound OB transvaginal on 10/04/2019 at 6:32 AM CLINICAL INDICATION: , vaginal bleeding COMPARISON: 09/14/2019 FINDINGS: Multiple sonographic images are obtained throughout the pelvis by transabdominal and transvaginal approach, both transverse and sagittal images are obtained. Uterus measures approximately 15.3 x 10.5 x 13 cm. Small amount of free fluid is noted in the pelvis. There is a single early intrauterine with a gestational sac, yolk sac and pole. Estimated gestational age by crown-rump length measurement is an approximate nine week one day gestation. Gestational sac shape is unremarkable. Gestation is too early for placental evaluation. Positive cardiac activity is noted with heart rate of 175 bpm. Adjacent to the gestational sac is a subchorionic hemorrhage measuring approximately 4.0 x 1.4 x 2.5 cm. There are multiple small heterogeneous hypoechoic areas in the uterine myometrium consistent with multiple small fibroids. Largest measures 3.4 cm in greatest diameter. Neither ovary is visualized. No adnexal mass or fluid collection is noted. IMPRESSION: 1. Single living approximately nine week one day intrauterine with adjacent subchorionic hemorrhage. 2. Multifibroid uterus.
--- NOTE | 2019-10-04 07:12 | ER Document Report ---
ED General - General Chief Complaint: OB Problem (<20wks) Stated Complaint: VAGINAL BLEEDING/ Time Seen by Provider: 10/04/19 05:53 Notes: 39-year-old G2, P1 female presents to the emergency department with chief complaint of vaginal bleeding. Patient states she is approximately 8 weeks and was seen here about 10 days ago for the same chief complaint. Transvaginal ultrasound then showed a living intrauterine with gestational age of 5 weeks and 6 days. There was a subchorionic bleed present. Patient states the bleeding subsided and then when she woke up this morning she started to have vaginal bleeding. No cramping, no abdominal pain. No abnormal discharge, no urinary symptoms, no fevers. TRAVEL OUTSIDE OF THE [place] IN LAST 30 DAYS: No - Related Data Allergies/Adverse Reactions: No Known Allergies Allergy (Verified 09/14/19 17:25) Home Medications: metoprolol, HCTZ Past Medical History - Social History Smoking Status: Never Smoker Family History: None Patient has suicidal ideation: No Patient has homicidal ideation: No - Past Medical History Cardiac Medical History: Reports: Hx Hypertension Renal/ Medical History: Denies: Hx Peritoneal Dialysis Past Surgical History: Reports: Hx Section - Immunizations Hx Diphtheria, Pertussis, Tetanus Vaccination: Yes Review of Systems - Review of Systems Constitutional: See HPI EENT: No symptoms reported Cardiovascular: No symptoms reported Respiratory: No symptoms reported Gastrointestinal: See HPI Genitourinary: See HPI Female Genitourinary: See HPI Musculoskeletal: No symptoms reported Skin: No symptoms reported Hematologic/Lymphatic: No symptoms reported Neurological/Psychological: No symptoms reported Physical Exam - Vital signs Vitals: Temp Pulse Resp BP Pulse Ox 98.5 F 92 16 177/116 H 100 10/04/19 05:35 10/04/19 05:35 10/04/19 05:35 10/04/19 05:35 10/04/19 05:35 - Notes Notes: PHYSICAL EXAMINATION: Reviewed vital signs and charting by RN GENERAL: Alert, interacts well. No acute distress. HEAD: Normocephalic, atraumatic. EYES: Pupils equal and round. Extraocular movements intact. ENT: Oral mucosa moist, tongue midline. NECK: Full range of motion. Trachea midline. LUNGS: Clear to auscultation bilaterally, no wheezes, rales, or rhonchi. No respiratory distress. HEART: Regular rate and rhythm. No murmur ABDOMEN: soft, non-tender. No distention. Bowel sounds present EXTREMITIES: Moves all 4 extremities spontaneously. No edema, No cyanosis. PSYCH: Normal affect, normal mood. SKIN: Warm, dry, normal turgor. No rashes or lesions noted. Course - Re-evaluation Re-evalutation: 10/04/19 07:11 She is well-appearing and nontoxic. Patient states that bleeding has mostly subsided and she described it as dark brown with no clots. Repeat transvaginal ultrasound with Doppler is obtained and lab work. Patient is O+ as a RhoGam panel was obtained at her last visit. 10/04/19 07:14 Urinalysis shows findings consistent with a urinary tract infection. Plan is to place patient on Keflex 500 mg every 12 hours for 7 days. Patient mildly hypokalemic at 3.4. I will give her 40 mEq of potassium p.o. All findings have been discussed with patient, patient understands and is in agreement with plan. She is stable for discharge with follow-up to her [employer]. - Vital Signs Vital signs: Temp Pulse Resp BP Pulse Ox 98.5 F 92 16 177/116 H 100 10/04/19 05:42 10/04/19 05:35 10/04/19 05:35 10/04/19 05:35 10/04/19 05:35 - Laboratory Result Diagrams: 10/04/19 06:14 10/04/19 06:14 Laboratory results interpreted by me: 10/04/19 10/04/19 10/04/19 05:50 06:14 06:14 Hgb 11.9 L Hct 34.4 L MCV 77 L MCH 26.5 L RDW 14.8 H Sodium 132.7 L Potassium 3.4 L Urine Blood LARGE H Ur Leukocyte Esterase MODERATE H Discharge - Discharge Clinical Impression: Vaginal bleeding during Urinary tract infection Qualifiers: Urinary tract infection type: acute cystitis Hematuria presence: with hematuria Qualified Code(s): N30.01 - Acute cystitis with hematuria Condition: Good Disposition: HOME, SELF-CARE Additional Instructions: Your ultrasound today shows a living intrauterine . Please follow closely with your primary care [employer]. Please return if you develop severe abdominal pain, bleeding that goes through more than 2 pads for more than 2 hours, pass out, or have any other symptoms that are concerning to you. Please follow-up closely with your OBGYN regarding todays visit. Your urine shows findings consistent with a urinary tract infection. Please take all the antibiotics as directed even if your symptoms have improved. Please follow-up with your primary care physician as needed. Return to emergency room if you develop fever >101F, persistent vomiting, become lethargic, have severe pain in your sides, or any other symptoms that are concerning to you.
[2019-10-04] MEDS ORDERED: CEPHALEXIN 500 MG CAPSULE PO ONE (07:14)
[2019-10-04] MEDS ORDERED: POTASSIUM CHLORIDE 10 MEQ TABLET.ER PO ONE (07:14)
[2019-10-04 07:40] VITALS: BP 142/98
== END 2019-10-04 07:39 | disposition home or self-care (01) ==
LOC: ER 05:30
DX: O46.91 Antepartum hemorrhage, unspecified, first trimester (principal); O23.11 Infections of bladder in pregnancy, first trimester; N30.01 Acute cystitis with hematuria; O16.1 Unspecified maternal hypertension, first trimester; Z3A.08 8 weeks gestation of pregnancy
CPT/HCPCS: 36415; 76817; 80053; 81001; 84702; 85025; 93976; 99284

== ENCOUNTER 2019-10-07 14:44 | Emergency (ER) | payer MEDICAID ==
--- NOTE | 2019-10-07 15:01 | ER Document Report ---
ED Medical Screen (RME) - General Stated Complaint: ABDOMINAL PAIN Time Seen by Provider: 10/07/19 14:53 TRAVEL OUTSIDE OF THE [place] IN LAST 30 DAYS: No - HPI Notes: 10/07/19 14:59 39-year-old female 2 para 2 who is 10 weeks presents to the emergency room for lower abdominal pain that started this morning. Reports vaginal bleeding this morning but since resolved. Reports pain comes and goes. States she was at work and her boss told her to get checked out at the emergency room. Patient is on antibiotics for UTI and for trichomonas. Denies any fevers or chills, chest pain shortness of breath, vomiting diarrhea, reports some nausea. Patient has an appointment coming up with a [employer] FINISHER. I have greeted and performed a rapid initial assessment of this patient. A comprehensive ED assessment and evaluation of the patient, analysis of test results and completion of the medical decision making process will be conducted by additional ED providers. PHYSICAL EXAMINATION: GENERAL: Well-appearing, well-nourished and in no acute distress. NECK: Normal range of motion CV: s1, s2 regular LUNGS: No respiratory distress Musculoskeletal: Normal range of motion - Related Data Allergies/Adverse Reactions: No Known Allergies Allergy (Verified 09/14/19 17:25) Past Medical History - Past Medical History Cardiac Medical History: Reports: Hx Hypertension Renal/ Medical History: Denies: Hx Peritoneal Dialysis Past Surgical History: Reports: Hx Section - Immunizations Hx Diphtheria, Pertussis, Tetanus Vaccination: Yes Physical Exam - Vital signs Vitals: Temp Pulse Resp BP Pulse Ox 97.4 F 80 18 164/100 H 100 10/07/19 14:47 10/07/19 14:47 10/07/19 14:47 10/07/19 14:47 10/07/19 14:47 Course - Vital Signs Vital signs: Temp Pulse Resp BP Pulse Ox 97.4 F 80 18 164/100 H 100 10/07/19 14:47 10/07/19 14:47 10/07/19 14:47 10/07/19 14:47 10/07/19 14:47
[2019-10-07 15:37] VITALS: BP 144/88
--- NOTE | 2019-10-07 15:38 | ER Document Report ---
ED GI/ - General Chief Complaint: Abdominal Pain Stated Complaint: ABDOMINAL PAIN Time Seen by Provider: 10/07/19 14:53 Primary Care Provider: [facility] [Provider Group] - Follow up as needed Mode of Arrival: Ambulatory Information source: Patient Notes: 39-year-old female presented to ED for complaint of pain and bleeding this morning. She states she is 2 para 2 she is about 10 weeks . She came to the emergency room because her boss at work told her that she had to come to get checked out. She states she was just seen here 3 days ago had blood work urine ultrasound and then she went to the health department this morning they did a pelvic exam. She states she was cramping a little bit after the pelvic exam but she is in little to no pain at this time. She states she was given antibiotics for UTI and trichomonas this morning. She states she is taking the medicines as she has been instructed. She states that the only reason she came to the emergency room was that her boss told her that she could not come back to work tomorrow unless she got a work note to come back. She is alert oriented respirations regular nonlabored speaking in full sentences. She states she is having no bleeding at this time and does not even need Tylenol for her cramping at this time. TRAVEL OUTSIDE OF THE [place] IN LAST 30 DAYS: No - HPI Patient complains to provider of: Pelvic pain - Level 1 out of 5, Onset: Other - Intermittent for the last couple weeks Timing/Duration: Intermittent Quality of pain: Cramping Severity at maximum: Moderate Severity in ED: Almost gone Pain Level: 1 Location: Pelvis Vaginal bleeding (Compared to normal period): Spotting - Vomiting earlier today no bleeding at this time Menstrual period history: : 2 Para: 2 Rh factor: + vitamins taken: Yes Associated symptoms: None Exacerbated by: Denies Relieved by: Denies Similar symptoms previously: Yes Recently seen / treated by doctor: Yes - Related Data Allergies/Adverse Reactions: No Known Allergies Allergy (Verified 09/14/19 17:25) Past Medical History - General Information source: Patient - Social History Smoking Status: Former Smoker Frequency of alcohol use: None Drug Abuse: None Lives with: Family Family History: None Patient has homicidal ideation: No - Past Medical History Cardiac Medical History: Reports: Hx Hypertension Pulmonary Medical History: Reports: None EENT Medical History: Reports: None Neurological Medical History: Reports: None Endocrine Medical History: Reports: None Renal/ Medical History: Reports: None Malignancy Medical History: Reports: None GI Medical History: Reports: None Musculoskeletal Medical History: Reports None Skin Medical History: Reports None Psychiatric Medical History: Reports: None Traumatic Medical History: Reports: None Infectious Medical History: Reports: None Past Surgical History: Reports: Hx Section - Immunizations Immunizations up to date: Yes Hx Diphtheria, Pertussis, Tetanus Vaccination: Yes Review of Systems - Review of Systems Constitutional: No symptoms reported EENT: No symptoms reported Cardiovascular: No symptoms reported Respiratory: No symptoms reported Gastrointestinal: No symptoms reported Genitourinary: No symptoms reported Female Genitourinary: See HPI, Musculoskeletal: No symptoms reported Skin: No symptoms reported Hematologic/Lymphatic: No symptoms reported Neurological/Psychological: No symptoms reported -: Yes All other systems reviewed and negative Physical Exam - Vital signs Vitals: Temp Pulse Resp BP Pulse Ox 97.4 F 80 18 164/100 H 100 10/07/19 14:47 10/07/19 14:47 10/07/19 14:47 10/07/19 14:47 10/07/19 14:47 Interpretation: Normal - General General appearance: Appears well, Alert - HEENT Head: Normocephalic, Atraumatic Eyes: Normal Pupils: PERRL - Respiratory Respiratory status: No respiratory distress Chest status: Nontender Breath sounds: Normal Chest palpation: Normal - Cardiovascular Rhythm: Regular Heart sounds: Normal auscultation Murmur: No - Abdominal Inspection: Normal Distension: No distension Bowel sounds: Normal Tenderness: Nontender. No: Tender Organomegaly: No organomegaly Notes: Patient is 10 weeks but it is too early to actually see a gravid abdomen - Back Back: Normal, Nontender - Extremities General upper extremity: Normal inspection, Nontender, Normal color, Normal ROM, Normal temperature General lower extremity: Normal inspection, Nontender, Normal color, Normal ROM, Normal temperature, Normal weight bearing. No: Anuja's sign - Neurological Neuro grossly intact: Yes Cognition: Normal Orientation: AAOx4 Tammy Coma Scale Eye Opening: Spontaneous Tammy Coma Scale Verbal: Oriented Mcrae Helena Coma Scale Motor: Obeys Commands Mcrae Helena Coma Scale Total: 15 Speech: Normal Motor strength normal: LUE, RUE, LLE, RLE Sensory: Normal - Psychological Associated symptoms: Normal affect, Normal mood - Skin Skin Temperature: Warm Skin Moisture: Dry Skin Color: Normal Course - Re-evaluation Re-evalutation: 10/07/19 15:50 Patient was just seen 3 days ago had complete blood work urine and ultrasound. These were all discussed with patient at that time. Patient is in no pain at this time. She also went to the health department this morning and had a pelvic exam. She states she did have some small amount of spotting and cramping after the pelvic exam but does not have any pain now and does not have any bleeding now. She is been instructed to follow-up with the women's health care on the as scheduled but the please call women's health care or return to the ED immediately for any increase in pain or bleeding. Patient verbalized understanding and patient was discharged home. - Vital Signs Vital signs: Temp Pulse Resp BP Pulse Ox 98.9 F 77 16 144/88 H 99 10/07/19 15:36 10/07/19 15:36 10/07/19 15:36 10/07/19 15:36 10/07/19 15:36 Discharge - Discharge Clinical Impression: Pelvic pain affecting in first trimester, antepartum, Uterine fibroids affecting in first trimester Condition: Stable Disposition: HOME, SELF-CARE Additional Instructions: Pelvic Pain in Lower abdominal pain during can have many causes. We look for serious causes such as appendicitis, tubal , miscarriage, placental separation, or urinary tract infection. Less serious causes of pain include corpus luteum cyst (ovarian cyst of ) or stretching of the pelvic t issues by the enlarging uterus. Sometimes the pain comes from the bowels. If no specific cause for the pain is found, we attribute the pain to stretching of the uterine ligaments. This is called "round ligament strain." It is not dangerous. Just rest until the pain goes away. Call us or come back for reexamination if any problems occur, such as: (1) Pain that becomes more severe, steady, or becomes concentrated in one specific area. Also, pain that is more severe with movement or coughing. (2) Vomiting that persists or becomes more frequent. (3) Blood in the vomitus, urine, or bowel movements. Blood in the stool may have a tarry or black appearance. (4) Shaking chills or fever greater than 100 degrees. (5) The abdomen becomes more distended or swollen. (6) Bowel movements cease. (7) Vaginal bleeding. Fibroids Fibroids are benign growths in the uterus. They can cause enlargement of the uterus, irregular bleeding, sever bleeding with periods, and abdominal pain. Anemia may result if periods are heavy. Fibroids tend to grow until menopause, then slowly shrink. If fibroids cause severe symptoms, they can be treated surgically. Call or return if vaginal bleeding or pain becomes severe. Acetaminophen Acetaminophen may be taken for pain relief or fever control. It's much safer than aspirin, offering a wider range of "safe" dosages. It is safe during . Some brand names are Tylenol, Panadol, Datril, Anacin 3, Tempra, and Liquiprin. Acetaminophen can be repeated every four hours. The following are maximum recommended dosages: WEIGHT Dose Drops Elixir Chewable(80mg) (LBS.) drprs=droppers tsp=teaspoon 6 40 mg .4 ml (1/2) 6-11 80 mg .8 ml (full) 1/2 tsp 1 tab 12-16 120 mg 1 1/2 drprs 3/4 tsp 1 1/2 tabs 17-23 160 mg 2 drprs 1 tsp 2 tabs 24-30 240 mg 3 drprs 1 1/2 tsp 3 tabs 30-35 320 mg 2 tsp 4 tabs 36-41 360 mg 2 1/4 tsp 4 1/2 tabs 42-47 400 mg 2 1/2 tsp 5 tabs 48-53 480 mg 3 tsp 6 tabs 54-59 520 mg 3 1/4 tsp 6 1/2 tabs 60-64 560 mg 3 1/2 tsp 7 tabs 65-70 600 mg 3 3/4 tsp 7 1/2 tabs 71-76 640 mg 4 tsp 8 tabs 77-82 720 mg 4 1/2 tsp 9 tabs 83-88 800 mg 5 tsp 10 tabs >89 pounds or adults 650 mg to 900 mg Acetaminophen can be repeated every four hours. Maximum daily dose not to exceed 4000 mg. These maximum recommended dosages are slightly higher than the dosages written on the product container, but these dosages are very safe and well below the toxic dosage for acetaminophen. Please call women's health care tomorrow and discuss when to follow-up. You state you have a follow-up appointment on the but you have had intermittent pain with your you have uterine fibroids. You also have had intermittent spotting with your . You state you are not having any spotting at time. He also states she was seen this morning at the health department and tested for gonorrhea chlamydia and you were positive for trichomonas and was started on Flagyl. Please let your RUG SAMPLE BEVELER know that you are on the Flagyl for trichomonas. There is no need to repeat the ultrasound if you had this all done 3 days ago and you were seen at the health department this morning. She states the pain is very minimal at this time and the bleeding is resolved. Please feel free to return to the ED for increasing pain or increasing vaginal bleeding. FOLLOW-UP CARE: If you have been referred to a physician for follow-up care, call the physicians office for an appointment as you were instructed or within the next two days. If you experience worsening or a significant change in your symptoms, notify the physician immediately or return to the Emergency Department at any time for re-evaluation. Forms: Elevated Blood Pressure, Return to Work Referrals: [facility] [Provider Group] - Follow up as needed
== END 2019-10-07 15:49 | disposition home or self-care (01) ==
LOC: ER 14:44
DX: O34.11 Maternal care for benign tumor of corpus uteri, first trimester (principal); O46.91 Antepartum hemorrhage, unspecified, first trimester; O26.891 Other specified pregnancy related conditions, first trimester; R10.9 Unspecified abdominal pain; R10.2 Pelvic and perineal pain; O21.9 Vomiting of pregnancy, unspecified; O16.1 Unspecified maternal hypertension, first trimester; Z3A.10 10 weeks gestation of pregnancy
CPT/HCPCS: 99281

== ENCOUNTER 2019-10-30 11:59 | Emergency (ER) | payer MEDICAID ==
[2019-10-30 12:03] VITALS: BP 177/100
--- NOTE | 2019-10-30 12:09 | ER Document Report ---
ED Medical Screen (RME) - General Chief Complaint: Vaginal Bleeding Stated Complaint: VAGINAL BLEEDING Time Seen by Provider: 10/30/19 12:03 Mode of Arrival: Ambulatory Information source: Patient Notes: 39-year-old female with history of high blood pressure 14 weeks G2, P1 presents to the emergency department complaints of vaginal bleeding that just started while she was at work. Patient reports she can feel her self bleeding. She reports bright red blood. Denies clots. Denies trauma. Denies other symptoms such as fever vomiting diarrhea. Reports she may have felt like a little abdominal pain this morning but it went away. Denies abdominal pain denies back pain. Denies known COVID exposure. No recent travel. I have greeted and performed a rapid initial assessment of this patient. A comprehensive ED assessment and evaluation of the patient, analysis of test results and completion of the medical decision making process will be conducted by additional ED providers. TRAVEL OUTSIDE OF THE [place] IN LAST 30 DAYS: No - Related Data Allergies/Adverse Reactions: No Known Allergies Allergy (Verified 10/30/19 12:03) Past Medical History - Past Medical History Cardiac Medical History: Reports: Hx Hypertension Renal/ Medical History: Denies: Hx Peritoneal Dialysis Past Surgical History: Reports: Hx Section - Immunizations Immunizations up to date: Yes Hx Diphtheria, Pertussis, Tetanus Vaccination: Yes Physical Exam - Vital signs Vitals: Temp Pulse Resp BP Pulse Ox 98.4 F 93 16 177/100 H 99 10/30/19 12:02 10/30/19 12:02 10/30/19 12:02 10/30/19 12:02 10/30/19 12:02 Course - Vital Signs Vital signs: Temp Pulse Resp BP Pulse Ox 98.4 F 93 16 177/100 H 99 10/30/19 12:03 10/30/19 12:02 10/30/19 12:02 10/30/19 12:02 10/30/19 12:02
--- NOTE | 2019-10-30 12:32 | ER Document Report ---
ED General - General Chief Complaint: OB Problem (<20wks) Stated Complaint: VAGINAL BLEEDING Time Seen by Provider: 10/30/19 12:03 Mode of Arrival: Ambulatory Information source: Patient Notes: Patient is a 39-year-old female presenting to the emergency department chief complaint of vaginal bleeding. Patient states that it is almost like a menstrual cycle. Patient states it started earlier today. Patient is 2 para 1 A0 EDC of 05/04/2020. Patient denies travel history trauma history of sick contacts no bad food exposure. TRAVEL OUTSIDE OF THE [place] 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 - Related Data Allergies/Adverse Reactions: No Known Allergies Allergy (Verified 10/30/19 12:03) Past Medical History - General Information source: Patient - Social History Smoking Status: Former Smoker Chew tobacco use (# tins/day): No Frequency of alcohol use: None Drug Abuse: None Lives with: Family Family History: None Patient has suicidal ideation: No Patient has homicidal ideation: No - Past Medical History Cardiac Medical History: Reports: Hx Hypertension Renal/ Medical History: Denies: Hx Peritoneal Dialysis Past Surgical History: Reports: Hx Section - Immunizations Immunizations up to date: Yes Hx Diphtheria, Pertussis, Tetanus Vaccination: Yes Review of Systems - Review of Systems Notes: REVIEW OF SYSTEMS: CONSTITUTIONAL : Denies fever, chills, or sweats. Denies recent illness. EENT: Denies eye, ear, throat, or mouth pain or symptoms. Denies nasal or sinus congestion. CARDIOVASCULAR: Denies chest pain. RESPIRATORY: Denies cough, cold, or chest congestion. Denies shortness of breath, difficulty breathing, or wheezing. GASTROINTESTINAL: Denies abdominal pain. Denies nausea, vomiting, or diarrhea. Denies constipation. GENITOURINARY: Denies difficulty urinating, painful urination, burning, frequency, or blood in urine. Patient reports spotting while . MUSCULOSKELETAL: Denies neck or back pain or joint pain or swelling. SKIN: Denies rash or skin lesions. HEMATOLOGIC : Denies easy bruising or bleeding. NEUROLOGICAL: Denies altered mental status or loss of consciousness. Denies headache. Denies weakness or paralysis or loss of use of either side. Denies problems with gait or speech. Denies sensory or motor loss. PSYCHIATRIC: Denies suicidal or homicidal ideations 10 Systems are negative unless otherwise specified above Physical Exam - Vital signs Vitals: Temp Pulse Resp BP Pulse Ox 98.4 F 93 16 177/100 H 99 10/30/19 12:02 10/30/19 12:02 10/30/19 12:02 10/30/19 12:02 10/30/19 12:02 - Notes Notes: PHYSICAL EXAMINATION: GENERAL: Well-appearing, well-nourished and in no acute distress. HEAD: Atraumatic, normocephalic. EYES: Pupils equal round and reactive to light, extraocular movements intact, sclera anicteric, conjunctiva are normal. ENT: nares patent, oropharynx clear without exudates. Moist mucous membranes. NECK: Normal range of motion, supple without lymphadenopathy, no appreciable JVD LUNGS: Lungs clear to auscultation bilaterally and equal. No wheezes rales or rhonchi. HEART: Regular rate and rhythm without murmurs ABDOMEN: Soft, nontender, normal bowel sounds. No guarding, no rebound. No masses appreciated. EXTREMITIES: Active full range of motion, no pitting or edema. No cyanosis. 2+ pulses x4 NEUROLOGICAL: No focal neurological deficits. Moves all extremities spontaneously and on command. SKIN: Warm, Dry, and intact. Normal turgor, no rashes or lesions noted. Course - Re-evaluation Re-evalutation: 10/30/19 13:11 I discussed the negative laboratory and radiologic results with the patient recommend rest over the next couple of days increase fluid hydration and follow- up with her OB appointment next week as previously scheduled. Patient is a greeable with care plan and discharged home in stable condition. Radiology demonstrates a single living IUP 13 weeks 2 days heart rate of 162 bpm. - Vital Signs Vital signs: Temp Pulse Resp BP Pulse Ox 98.4 F 93 16 177/100 H 99 10/30/19 12:03 10/30/19 12:02 10/30/19 12:02 10/30/19 12:02 10/30/19 12:02 - Laboratory Result Diagrams: 10/30/19 12:15 10/30/19 12:15 Laboratory results interpreted by me: 10/30/19 10/30/19 10/30/19 12:15 12:15 12:15 Hgb 11.8 L Hct 34.0 L MCV 78 L RDW 15.7 H Sodium 134.8 L Urine Protein 100 H Urine Blood LARGE H - Diagnostic Test Radiology reviewed: Reports reviewed Discharge - Discharge Clinical Impression: Spotting affecting in first trimester Condition: Stable Disposition: HOME, SELF-CARE Additional Instructions: You are . care is best started as early in as possible. If you're unsure about continuing this , you should discuss this with your physician or with service tester at [facility]. You should take only medications approved by your physician. Acetaminophen can safely be taken for minor pains. As a rule, medication for chronic conditions such as asthma or seizures can safely be continued. You should discuss with the physician every medicine you take. Any regular exercise program can be continued. Talk to your physician, however, before engaging in competitive or demanding sports. Alcohol, smoking, and "street drugs" are dangerous to your baby. Cocaine is especially dangerous. Don't use any illicit drugs! Forms: Return to Work
[2019-10-30 12:35] LABS: APPEARANCE,URINE CLOUDY; BILIRUBIN,URINE NEGATIVE (NEGATIVE); COLOR,URINE AMBER; GLUCOSE, URINE NEGATIVE (NEGATIVE); KETONES,URINE NEGATIVE (NEGATIVE); LEUKOCYTE ESTERASE,URINE NEGATIVE (NEGATIVE); NITRITE,URINE NEGATIVE (NEGATIVE); PROTEIN,URINE 100 mg/dL (NEGATIVE); URINE SPECIFIC GRAVITY 1.024; UROBILINOGEN,URINE NEGATIVE mg/dL (<2.0)
[2019-10-30 12:42] LABS: ABSOLUTE EOSINOPHILS # (AUTO) 0.1 10^3/uL (0.0-0.6); ABSOLUTE LYMPHOCYTES (AUTO) 1.5 10^3/uL (0.5-4.7); ABSOLUTE MONOCYTES (AUTO) 0.4 10^3/uL (0.1-1.4); BASOPHILS % (AUTO) 0.6 % (0-2); EOSINOPHILS % (AUTO) 2.1 % (0-6); HEMOGLOBIN 11.8 g/dL (12.0-15.5); LYMPHOCYTES % (AUTO) 21.1 % (13-45); MEAN CORPUSCULAR HGB CONC 34.6 g/dL (32.0-36.0); MEAN CORPUSCULAR VOLUME 78 fl (80-97); MONOCYTES % (AUTO) 5.8 % (3-13); PLATELET COUNT 201 10^3/uL (150-450); RED BLOOD COUNT 4.35 10^6/uL (3.72-5.28); RED CELL DISTRIBUTION WIDTH 15.7 % (11.5-14.0); SEGMENTED NEUTROPHILS % (AUTO) 70.4 % (42-78); TOTAL CELLS COUNTED % (AUTO) 100 %; WHITE BLOOD COUNT 7.1 10^3/uL (4.0-10.5)
[2019-10-30 12:49] LABS: ALKALINE PHOSPHATASE 42 U/L (38-126); ANION GAP 10 (5-19); ASPARTATE AMINO TRANSFERASE 19 U/L (14-36); BILIRUBIN,TOTAL 0.4 mg/dL (0.2-1.3); BLOOD UREA NITROGEN 12 mg/dL (7-20); CALCIUM 9.9 mg/dL (8.4-10.2); CARBON DIOXIDE 22 mmol/L (22-30); CHLORIDE 103 mmol/L (98-107); GLUCOSE 104 mg/dL (75-110); POTASSIUM 3.7 mmol/L (3.6-5.0); TOTAL PROTEIN 7.3 g/dL (6.3-8.2)
--- NOTE | 2019-10-30 12:56 | RADIOLOGY REPORT (SQ) ---
EXAM DESCRIPTION: U/S OB 14+ TA/1 GEST W/DOPPLER IMAGES COMPLETED DATE/TIME: 10/30/2019 12:39 pm REASON FOR STUDY: 14W VAG BLEED COMPARISON: 10/04/2019. TECHNIQUE: Transabdominal static and realtime grayscale images acquired of the pelvis. Additional se lected spectral and color Doppler images recorded. All images stored on PACs. bHCG: Not applicable. CLINICAL DATES: 13 week 2 day. LIMITATIONS: None. FINDINGS: FETUS: Single Living intrauterine . ULTRASOUND EGA: 13 week 2 day. ULTRASOUND ELVIE: 05/04/2020. EFW: Not applicable less than 20 weeks. CRL: 7.01 cm. FHR: 162 beats per minute. SURVEY: No visualized anomalies. AMNIOTIC FLUID: Adequate amount. PLACENTA: Not yet developed due to early gestation. SUBCHORIONIC BLEED: No. SIZE OF BLEED: Not applicable. UTERUS: Diffuse heterogenous echogenicity with multiple fibroids. CERVICAL LENGTH: 3.1 cm. Closed. RIGHT ADNEXA: Ovary not identified due to poor acoustical window. No adnexal free fluid. No adnexal masses. LEFT ADNEXA: Ovary not identified due to poor acoustical window. No adnexal free fluid. No adnexal masses. FREE FLUID: None. OTHER: No other significant finding. IMPRESSION: LIVING INTRAUTERINE . EGA 13 WEEK 2 DAY. FIBROID UTERUS. Trimester of : First trimester - 0 to 13 weeks. TECHNICAL DOCUMENTATION: JOB ID: [id number] 2010 [employer] All Rights Reserved rev Reading location - IP/workstation name: [email or web address]
== END 2019-10-30 13:22 | disposition home or self-care (01) ==
LOC: ER 11:59
DX: O26.851 Spotting complicating pregnancy, first trimester (principal); O26.891 Other specified pregnancy related conditions, first trimester; R25.2 Cramp and spasm; O16.1 Unspecified maternal hypertension, first trimester; Z3A.13 13 weeks gestation of pregnancy; Z87.891 Personal history of nicotine dependence
CPT/HCPCS: 36415; 76805; 80053; 81001; 84702; 85025; 86900; 86901; 93976; 99284

== ENCOUNTER 2019-11-10 20:36 | Emergency (ER) | payer MEDICAID ==
[2019-11-10] MEDS ORDERED: ADENOSINE INJ/PF 6 MG/2 ML SDV IV ONE ×3 (21:03→21:18)
[2019-11-10 21:12] LABS: ABSOLUTE EOSINOPHILS # (AUTO) 0.3 10^3/uL (0.0-0.6); ABSOLUTE LYMPHOCYTES (AUTO) 2.4 10^3/uL (0.5-4.7); ABSOLUTE MONOCYTES (AUTO) 0.7 10^3/uL (0.1-1.4); ABSOLUTE NEUT (AUTO) 6.4 10^3/uL (1.7-8.2); BASOPHILS % (AUTO) 0.5 % (0-2); EOSINOPHILS % (AUTO) 2.7 % (0-6); HEMATOCRIT 37.1 % (36.0-47.0); HEMOGLOBIN 12.8 g/dL (12.0-15.5); LYMPHOCYTES % (AUTO) 24.4 % (13-45); MEAN CORPUSCULAR HEMOGLOBIN 27.2 pg (27.0-33.4); MEAN CORPUSCULAR HGB CONC 34.5 g/dL (32.0-36.0); MEAN CORPUSCULAR VOLUME 79 fl (80-97); MONOCYTES % (AUTO) 7.1 % (3-13); PLATELET COUNT 220 10^3/uL (150-450); RED CELL DISTRIBUTION WIDTH 15.7 % (11.5-14.0); SEGMENTED NEUTROPHILS % (AUTO) 65.3 % (42-78); TOTAL CELLS COUNTED % (AUTO) 100 %; WHITE BLOOD COUNT 9.8 10^3/uL (4.0-10.5)
--- NOTE | 2019-11-10 21:23 | ER Document Report ---
ED General - General Chief Complaint: Arrhythmia Stated Complaint: HEART RACING Time Seen by Provider: 11/10/19 20:58 TRAVEL OUTSIDE OF THE [place] IN LAST 30 DAYS: No - HPI Notes: Patient is a 39-year-old female, G2, P1 at approximately 15 weeks gestation, who presents to the emergency department for evaluation of palpitations. She has a history of SVT. It started just prior to arrival. She has had this in the past. She has required adenosine in the past. She denies any associated chest pain. She states she just feels "nervous." She does started feeling the baby move yesterday. She is being followed by OB. She denies any vaginal bleeding, no abdominal pain. She has no difficulty breathing at this time. - Related Data Allergies/Adverse Reactions: No Known Allergies Allergy (Verified 10/30/19 12:03) Home Medications: Labetalol, unknown blood pressure medication Past Medical History - General Information source: Patient - Social History Smoking Status: Never Smoker Family History: None, Reviewed & Not Pertinent - Past Medical History Cardiac Medical History: Reports: Hx Hypertension, Other - SVT Renal/ Medical History: Denies: Hx Peritoneal Dialysis Past Surgical History: Reports: Hx Section - Immunizations Immunizations up to date: Yes Hx Diphtheria, Pertussis, Tetanus Vaccination: Yes Review of Systems - Review of Systems Cardiovascular: See HPI -: Yes All other systems reviewed and negative Physical Exam - Vital signs Vitals: Resp Pulse Ox 15 99 11/10/19 20:57 11/10/19 20:57 - Notes Notes: Vital signs reviewed, please refer to chart. Head is normocephalic, atraumatic. Pupils equal round, reactive to light. Neck is supple without meningismus. Heart is tachycardic with normal S1, S2. Lungs are clear to auscultation bilaterally. Abdomen is gravid, nontender, normoactive bowel sounds throughout. Extremities without cyanosis, clubbing. Posterior calves are nontender. Peripheral pulses are equal. Skin is warm and dry. Patient is awake, alert, neurological exam is nonfocal. Course - Re-evaluation Re-evalutation: 11/10/19 21:24 Patient presents to the emergency department for evaluation. Initially heart rates were in the 170s. He was initially noted to be SVT. Patient was given 6 mg of adenosine with little in the way of change. She was given a second dose of 12 mg IV, rapidly converted to sinus rhythm. Current heart rate is 113. She is given IV fluids. Awaiting laboratory investigations, patient is stable at this time. 11/10/19 22:06 Patient's laboratory investigations are all normal, still awaiting TSH. Will be another approximately 25 minutes till this is done. I suspect this was done e nicole in her , and the patient agrees. Either way, we will keep the patient here until her TSH results. Assuming it is normal, the patient will go home, follow-up with primary care and OB, and return to the ED with worsening. - Vital Signs Vital signs: Temp Pulse Resp BP Pulse Ox 98.7 F 19 165/111 H 100 11/10/19 21:05 11/10/19 22:01 11/10/19 22:00 11/10/19 22:01 - Laboratory Result Diagrams: 11/10/19 21:07 11/10/19 21:07 Laboratory results interpreted by me: 11/10/19 11/10/19 21:07 21:07 MCV 79 L RDW 15.7 H Sodium 135.2 L Glucose 114 H - EKG Interpretation by Me Additional EKG results interpreted by me: 11/10/19 21:25 SVT with a rate of 174 bpm. Normal axis and intervals. Nonspecific ST changes, but no acute ST elevation concerning for infarction. No old studies available immediately for comparison. 11/10/19 22:07 Repeat EKG was performed. It showed sinus tachycardia with a rate of 105 bpm. Normal axis and intervals. No acute ST changes concerning for ischemia or infarction. Discharge - Discharge Clinical Impression: SVT (supraventricular tachycardia) Condition: Stable Disposition: HOME, SELF-CARE Instructions: Paroxysmal Supraventricular Tachycardia ([facility]) Additional Instructions: Continue your home medications as prescribed. Avoid excessive caffeine. Follow-up with your primary care physician as well as your OB in the next week. Return to the emergency department with worsening or new concerning symptoms of any sort.
[2019-11-10] MEDS ORDERED: NORMAL SALINE 1000 ML 1,000 ML IV ONE (21:27)
[2019-11-10 21:36] LABS: ALBUMIN 4.2 g/dL (3.5-5.0); ALKALINE PHOSPHATASE 54 U/L (38-126); ANION GAP 10 (5-19); ASPARTATE AMINO TRANSFERASE 23 U/L (14-36); BILIRUBIN,TOTAL 0.4 mg/dL (0.2-1.3); BLOOD UREA NITROGEN 15 mg/dL (7-20); CARBON DIOXIDE 22 mmol/L (22-30); CHLORIDE 103 mmol/L (98-107); GLUCOSE 114 mg/dL (75-110); POTASSIUM 3.6 mmol/L (3.6-5.0); TOTAL PROTEIN 7.7 g/dL (6.3-8.2)
--- NOTE | 2019-11-10 23:07 | ER Document Report ---
Doctor's Note Notes: 11/10/19 23:06 Patient turned over to me from Dr. Darden pending TSH. TSH normal, and to patient to check in with her that he she has a history of hypertension which she endorses and her current hypertension is not a new phenomenon during this . Patient endorses having felt completely well prior to onset of palp itations suddenly and that she has not been having any chest pain or shortness of breath and that now that her SVT has resolved she feels completely asymptomatic and that this episode is similar to the multiple episodes of SVT she has had in the past. Gave patient extensive return to ED precautions which she demonstrated understanding of. 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
[2019-11-10 23:24] VITALS: BP 146/106
--- NOTE | 2019-11-10 23:39 | EKG REPORT ---
SEVERITY:- ABNORMAL ECG - SINUS TACHYCARDIA CRISTI, CONSIDER BIATRIAL ABNORMALITIES : Confirmed by: Fracisco Jordan 10-Nov-2019 23:38:34
--- NOTE | 2019-11-10 23:40 | EKG REPORT ---
SEVERITY:- ABNORMAL ECG - SVT : Confirmed by: Fracisco Jordan 10-Nov-2019 23:39:09
== END 2019-11-10 23:24 | disposition home or self-care (01) ==
LOC: ER 20:36
DX: O10.012 Pre-existing essential hypertension complicating pregnancy, second trimester (principal); I47.1 Supraventricular tachycardia; Z3A.14 14 weeks gestation of pregnancy
CPT/HCPCS: 93005; 99285; 96361; 96374; 36415; 84443; 85025; 80053; 84484; 93010; J7030; J0153

== ENCOUNTER 2019-12-15 11:50 | Emergency (ER) | payer MEDICAID ==
--- NOTE | 2019-12-15 12:34 | ER Document Report ---
ED Medical Screen (RME) - General Chief Complaint: OB Problem (<20wks) Stated Complaint: ABDOMINAL PAIN Time Seen by Provider: 12/15/19 12:26 Primary Care Provider: INDIO KRISHNAMURTHY MD [Primary Care Provider] - Follow up as needed TRAVEL OUTSIDE OF THE [place] IN LAST 30 DAYS: No - HPI Notes: 12/15/19 12:32 39-year-old female 2 para 1, 19 days 6 weeks presents to the emergency room for abdominal cramping that started last night. Patient states that cramping has been constant since last night. Called her TUTORIAL LABORATORY SUPERVISOR advised her to go to L&D floor however L&D advised her to go to the emergency room since she is not 20 weeks until tomorrow. Denies any fevers or chills, denies any vaginal bleeding. Denies any chest pain or shortness of breath. No [id number] medications have been tried. Nothing makes worse, nothing makes better. I have greeted and performed a rapid initial assessment of this patient. A comprehensive ED assessment and evaluation of the patient, analysis of test results and completion of the medical decision making process will be conducted by additional ED providers. PHYSICAL EXAMINATION: GENERAL: Well-appearing, well-nourished and in no acute distress. HEAD: Atraumatic, normocephalic. EYES: Pupils equal round extraocular movements intact, conjunctiva are normal. NECK: Normal range of motion CV: s1, s2 regular abd: Fundus at umbilicus, pelvic tenderness on palpation, no CVA tenderness appreciated LUNGS: No respiratory distress - Related Data Allergies/Adverse Reactions: No Known Allergies Allergy (Verified 10/30/19 12:03) Home Medications: BP meds Past Medical History - Social History Frequency of alcohol use: None Drug Abuse: None - Past Medical History Cardiac Medical History: Reports: Hx Hypertension Renal/ Medical History: Denies: Hx Peritoneal Dialysis Past Surgical History: Reports: Hx Section - Immunizations Immunizations up to date: Yes Hx Diphtheria, Pertussis, Tetanus Vaccination: Yes Physical Exam - Vital signs Vitals: Temp Pulse Resp BP Pulse Ox 98.6 F 94 18 152/104 H 99 12/15/19 12:03 12/15/19 12:03 12/15/19 12:03 12/15/19 12:03 12/15/19 12:03 Course - Vital Signs Vital signs: Temp Pulse Resp BP Pulse Ox 98.6 F 94 18 152/104 H 99 12/15/19 12:03 12/15/19 12:03 12/15/19 12:03 12/15/19 12:03 12/15/19 12:03 Doctor's Discharge - Discharge Referrals: INDIO KRISHNAMURTHY MD [Primary Care Provider] - Follow up as needed
[2019-12-15 13:05] LABS: ABSOLUTE EOSINOPHILS # (AUTO) 0.2 10^3/uL (0.0-0.6); ABSOLUTE LYMPHOCYTES (AUTO) 1.6 10^3/uL (0.5-4.7); ABSOLUTE MONOCYTES (AUTO) 0.6 10^3/uL (0.1-1.4); ABSOLUTE NEUT (AUTO) 7.6 10^3/uL (1.7-8.2); BASOPHILS % (AUTO) 0.4 % (0-2); EOSINOPHILS % (AUTO) 2.3 % (0-6); HEMATOCRIT 35.3 % (36.0-47.0); HEMOGLOBIN 12.2 g/dL (12.0-15.5); LYMPHOCYTES % (AUTO) 16.3 % (13-45); MEAN CORPUSCULAR HEMOGLOBIN 27.8 pg (27.0-33.4); MEAN CORPUSCULAR HGB CONC 34.7 g/dL (32.0-36.0); MEAN CORPUSCULAR VOLUME 80 fl (80-97); MONOCYTES % (AUTO) 5.9 % (3-13); PLATELET COUNT 210 10^3/uL (150-450); RED CELL DISTRIBUTION WIDTH 14.4 % (11.5-14.0); SEGMENTED NEUTROPHILS % (AUTO) 75.1 % (42-78); TOTAL CELLS COUNTED % (AUTO) 100 %; WHITE BLOOD COUNT 10.1 10^3/uL (4.0-10.5)
[2019-12-15 13:07] LABS: APPEARANCE,URINE SLIGHTLY-CLOUDY; BILIRUBIN,URINE NEGATIVE (NEGATIVE); COLOR,URINE YELLOW; GLUCOSE, URINE NEGATIVE (NEGATIVE); KETONES,URINE NEGATIVE (NEGATIVE); LEUKOCYTE ESTERASE,URINE SMALL (NEGATIVE); NITRITE,URINE NEGATIVE (NEGATIVE); PROTEIN,URINE 30 mg/dL (NEGATIVE); URINE SPECIFIC GRAVITY 1.019; UROBILINOGEN,URINE NEGATIVE mg/dL (<2.0)
[2019-12-15 13:27] LABS: ALBUMIN 3.8 g/dL (3.5-5.0); ALKALINE PHOSPHATASE 57 U/L (38-126); ANION GAP 7 (5-19); ASPARTATE AMINO TRANSFERASE 24 U/L (14-36); BILIRUBIN,TOTAL 0.4 mg/dL (0.2-1.3); BLOOD UREA NITROGEN 11 mg/dL (7-20); CALCIUM 9.4 mg/dL (8.4-10.2); CARBON DIOXIDE 26 mmol/L (22-30); CHLORIDE 103 mmol/L (98-107); GLUCOSE 93 mg/dL (75-110); POTASSIUM 3.3 mmol/L (3.6-5.0); TOTAL PROTEIN 7.3 g/dL (6.3-8.2)
[2019-12-15] MEDS ORDERED: DEXTROSE 5%-LACTATED RINGERS 1,000 ML IV ONE (14:59)
[2019-12-15] MEDS ORDERED: POTASSIUM CHLORIDE 20 MEQ PACKET PO ONE (14:59)
--- NOTE | 2019-12-15 15:31 | RADIOLOGY REPORT (SQ) ---
EXAM DESCRIPTION: U/S OB 14+ TRNABD 1GES W/O DOP IMAGES COMPLETED DATE/TIME: 12/15/2019 3:02 pm REASON FOR STUDY: 19w,6d abd cramping COMPARISON: None. TECHNIQUE: Static and Dynamic grayscale imaging performed of gravid uterus using transabdominal appr oach. Additional selected color Doppler and spectral images recorded. All stored on PACS. LIMITATIONS: None. FINDINGS: FETUSES SEEN:1 EGA: 19 weeks 5 days Calculated using BPD,FL,HC,AC documented on images. No discrepancy with clinica l dates. LEVIE: 05/05/2020 EFW: 305 +/-45 grams PERCENTILE: Not applicable. Fetus less than or equal to 20 weeks gestation. LVP: 17.5 cm PLACENTA: Posterior grade 1 PRESENTATION: Breech ANATOMY: HEART RATE: 155 beats per minute. Full anatomical survey was not performed. OTHER: There is is uterine fibroid on the left that measures 5.1 x 3.9 x 3.4 cm. MATERNAL ADNEXA: Maternal ovaries not visualized. CERVICAL LENGTH: 3.1 cm. Closed. OTHER: No other significant finding. IMPRESSION: LIVING INTRAUTERINE . ESTIMATED GESTATIONAL AGE 19 weeks 5 days Complete survey was not performed. A uterine fibroid was demonstrated as described. Trimester of : Second trimester - 13 weeks 1 day to 27 weeks 6 days. TECHNICAL DOCUMENTATION: JOB ID: [id number] 2010 [employer]- All Rights Reserved Reading location - IP/workstation name: [email or web address]
--- NOTE | 2019-12-15 15:39 | ER Document Report ---
Entered by MARK ESQUIVEL SCRIBE 12/15/19 1507 Acting as scribe for:JOSÉ LUIS SANDY MD ED GI/ - General Chief Complaint: OB Problem (<20wks) Stated Complaint: ABDOMINAL PAIN Time Seen by Provider: 12/15/19 12:26 Primary Care Provider: INDIO KRISHNAMURTHY MD [Primary Care Provider] - Follow up as needed Mode of Arrival: Ambulatory Information source: Patient Notes: This 39 year old female patient who is approximately 20 weeks presents to the emergency department today with complaints of lower abdominal cramping. Patient states that the lower abdominal cramping began last night and it has been constant since onset. Patient is on labetalol for HTN and has not missed any dosages of her medication. Patient denies fevers, nausea, or vaginal bleeding. TRAVEL OUTSIDE OF THE [place] IN LAST 30 DAYS: No - Related Data Allergies/Adverse Reactions: No Known Allergies Allergy (Verified 10/30/19 12:03) Home Medications: BP meds Past Medical History - General Information source: Patient - Social History Smoking Status: Never Smoker Cigarette use (# per day): No Frequency of alcohol use: None Drug Abuse: None Lives with: Family Family History: None, Reviewed & Not Pertinent - Past Medical History Cardiac Medical History: Reports: Hx Hypertension Past Surgical History: Reports: Hx Section - Immunizations Immunizations up to date: Yes Hx Diphtheria, Pertussis, Tetanus Vaccination: Yes Review of Systems - Review of Systems Constitutional: No symptoms reported EENT: No symptoms reported Cardiovascular: No symptoms reported Respiratory: No symptoms reported Gastrointestinal: See HPI, Abdominal pain Genitourinary: No symptoms reported Female Genitourinary: See HPI, Musculoskeletal: No symptoms reported Skin: No symptoms reported Hematologic/Lymphatic: No symptoms reported Neurological/Psychological: No symptoms reported -: Yes All other systems reviewed and negative Physical Exam - Vital signs Vitals: Temp Pulse Resp BP Pulse Ox 98.6 F 94 18 152/104 H 99 12/15/19 12:03 12/15/19 12:03 12/15/19 12:03 12/15/19 12:03 12/15/19 12:03 - Notes Notes: Physical Exam: General: Alert, appears well. HEENT: Normocephalic. Atraumatic. PERRL. Extraocular movements intact. Oropharyn x clear. Neck: Supple. Non-tender. Respiratory: No respiratory distress. Clear and equal breath sounds bilaterally. Cardiovascular: Regular rate and rhythm. Abdominal: Gravid uterus. No distension. Normal Bowel Sounds. Back: No gross abnormalities. Extremities: Moves all four extremities. Upper extremities: Normal inspection. Normal ROM. Lower extremities: Normal inspection. No edema. Normal ROM. Neurological: Normal cognition. AAOx4. Normal speech. Psychological: Normal affect. Normal Mood. Skin: Warm. Dry. Normal color. Course - Vital Signs Vital signs: Temp Pulse Resp BP Pulse Ox 98.6 F 94 18 152/104 H 99 12/15/19 12:03 12/15/19 12:03 12/15/19 12:03 12/15/19 12:03 12/15/19 12:03 - Laboratory Result Diagrams: 12/15/19 12:50 12/15/19 12:50 Laboratory results interpreted by me: 12/15/19 12/15/19 12/15/19 12:50 12:50 12:50 Hct 35.3 L RDW 14.4 H Sodium 136.4 L Potassium 3.3 L Beta HCG, Quant 18011.00 H Urine Protein 30 H Urine Blood SMALL H Ur Leukocyte Esterase SMALL H Discharge - Discharge Clinical Impression: 19 weeks gestation of , Pelvic cramping, Hypokalemia Condition: Stable Disposition: HOME, SELF-CARE Additional Instructions: Your ultrasound shows a 19-week 5-day intrauterine with heart rate 155. Your serum potassium level was low at 3.3, you should increase potassium in your diet. Drink plenty of fluids and rest today. Follow-up with your BASIC ACOUSTIC ANALYST doctor if you continue to have pelvic cramping. RETURN TO THE EMERGENCY ROOM IF ANY NEW OR WORSENING SYMPTOMS. Referrals: INDIO KRISHNAMURTHY MD [Primary Care Provider] - Follow up as needed I personally performed the services described in the documentation, reviewed and edited the documentation which was dictated to the scribe in my presence, and it accurately records my words and actions.
[2019-12-15 17:46] VITALS: BP 156/104
== END 2019-12-15 17:43 | disposition home or self-care (01) ==
LOC: EDSTATUS 11:50 → ER 11:50
DX: O26.892 Other specified pregnancy related conditions, second trimester (principal); R10.2 Pelvic and perineal pain; E87.6 Hypokalemia; R10.30 Lower abdominal pain, unspecified; O16.2 Unspecified maternal hypertension, second trimester; Z3A.20 20 weeks gestation of pregnancy; Z79.899 Other long term (current) drug therapy
CPT/HCPCS: 99284; 96360; 36415; 84702; 85025; 80053; 81001; 76805; J7121; J3490

== ENCOUNTER 2020-02-10 10:37 | Observation (INO) | payer MEDICAID ==
[2020-02-10] MEDS ORDERED: NIFEDIPINE 30 MG TAB.ER.24 PO ONE ×4 (10:56→13:18)
[2020-02-10] MEDS ORDERED: HYDRALAZINE HCL INJ/PF 20 MG/1 ML SDV ONE ×2 (10:56→13:18)
[2020-02-10] MEDS ORDERED: HYDRALAZINE HCL INJ/PF 20 MG/1 ML SDV IV ONE ×2 (11:05→13:06)
[2020-02-10 11:36] LABS: ABSOLUTE EOSINOPHILS # (AUTO) 0.1 10^3/uL (0.0-0.6); ABSOLUTE LYMPHOCYTES (AUTO) 1.6 10^3/uL (0.5-4.7); ABSOLUTE MONOCYTES (AUTO) 0.4 10^3/uL (0.1-1.4); ABSOLUTE NEUT (AUTO) 7.4 10^3/uL (1.7-8.2); BASOPHILS % (AUTO) 0.5 % (0-2); EOSINOPHILS % (AUTO) 1.5 % (0-6); HEMATOCRIT 31.6 % (36.0-47.0); HEMOGLOBIN 11.2 g/dL (12.0-15.5); LYMPHOCYTES % (AUTO) 16.5 % (13-45); MEAN CORPUSCULAR HEMOGLOBIN 28.7 pg (27.0-33.4); MEAN CORPUSCULAR HGB CONC 35.4 g/dL (32.0-36.0); MEAN CORPUSCULAR VOLUME 81 fl (80-97); MONOCYTES % (AUTO) 4.2 % (3-13); PLATELET COUNT 193 10^3/uL (150-450); RED BLOOD COUNT 3.89 10^6/uL (3.72-5.28); RED CELL DISTRIBUTION WIDTH 14.5 % (11.5-14.0); SEGMENTED NEUTROPHILS % (AUTO) 77.3 % (42-78); TOTAL CELLS COUNTED % (AUTO) 100 %; WHITE BLOOD COUNT 9.6 10^3/uL (4.0-10.5)
[2020-02-10 11:59] LABS: ALBUMIN 3.4 g/dL (3.5-5.0); ALKALINE PHOSPHATASE 67 U/L (38-126); ANION GAP 9 (5-19); ASPARTATE AMINO TRANSFERASE 24 U/L (14-36); BILIRUBIN,DIRECT 0.1 mg/dL (0.0-0.4); BILIRUBIN,TOTAL 0.6 mg/dL (0.2-1.3); BLOOD UREA NITROGEN 14 mg/dL (7-20); CALCIUM 9.6 mg/dL (8.4-10.2); CARBON DIOXIDE 19 mmol/L (22-30); CHLORIDE 104 mmol/L (98-107); GLUCOSE 87 mg/dL (75-110); POTASSIUM 3.5 mmol/L (3.6-5.0); TOTAL PROTEIN 6.5 g/dL (6.3-8.2); URIC ACID 7.5 mg/dL (2.5-7.0)
[2020-02-10 12:15] LABS: APPEARANCE,URINE SLIGHTLY-CLOUDY; BILIRUBIN,URINE NEGATIVE (NEGATIVE); COLOR,URINE STRAW; GLUCOSE, URINE NEGATIVE (NEGATIVE); KETONES,URINE NEGATIVE (NEGATIVE); LEUKOCYTE ESTERASE,URINE SMALL (NEGATIVE); NITRITE,URINE NEGATIVE (NEGATIVE); PROTEIN,URINE NEGATIVE (NEGATIVE); UR PRO/CREAT RATIO RESULT 0.3 mg/mg (0.0-0.2); URINE CREATININE 46.8 mg/dL (15-278); URINE PROTEIN 15.1 mg/dL (<12); URINE SPECIFIC GRAVITY 1.005; UROBILINOGEN,URINE NEGATIVE mg/dL (<2.0)
[2020-02-10 12:17] LABS: URINE AMPHETAMINES SCREEN NEGATIVE; URINE BARBITURATES SCREEN NEGATIVE; URINE BENZODIAZEPINES SCREEN NEGATIVE; URINE COCAINE SCREEN NEGATIVE; URINE MARIJUANA (THC) SCREEN NEGATIVE; URINE METHADONE SCREEN NEGATIVE; URINE PHENCYCLIDINE SCREEN NEGATIVE
[2020-02-10] MEDS ORDERED: HYDROXYZINE PAMOATE 50 MG CAPSULE ONE (14:15)
[2020-02-10] MEDS: LABETALOL HCL 200 MG TABLET PO SCH ×2 (17:21→22:06)
[2020-02-10] MEDS: NIFEDIPINE 30 MG TAB.ER.24 PO SCH ×2 (22:06→22:07)
[2020-02-11] MEDS: LABETALOL HCL 200 MG TABLET PO SCH (05:46)
[2020-02-11] MEDS: NIFEDIPINE 30 MG TAB.ER.24 PO SCH (11:21)
--- NOTE | 2020-02-11 12:44 | Admission Physical ---
Datetime Report Generated by CPN: 02/11/2020 12:43 CURRENT ADMISSION Chief Complaint: Sent from OB Office for Evaluation and Treatment - Please Specify Chief Complaint Other: who was sent from the office with elevated blood pressures severe range. She has Chronic hypertension and is supposed to be taking Labetolol 200mg TID and Nifedipine 60mg XL BID. She reports she has taken labetalol one time today but usually takes nifedipine only in afternoon/evening and she takes 30mg . She denies BOSS, CP, SOB, RUQ pain, N/v or vision changes. GOod FM Admit Impression : , Intrauterine ; Medical Complication Admit Impression- Other: Poorly controlled cHTN on meds with severe range b/p today. Plan to admit for b/p control and superimposed preeclampsia work up. Admit Plan: Admit to Unit; Observation/Evaluation ALLERGIES Medication Allergies: No Known Allergies (02/10/2020) Medication Allergies: No Known Allergies (10/30/2019) OBSTETRICAL HISTORY EDC: 05/04/2020 00:00 : 2 Para: 1 Term: 1 : 0 SAB: 0 IAB: 0 Livin PHYSICAL EXAM General: Normal HEENT: Normal Neurologic: Normal Thyroid: Normal Heart: Normal Lungs: Normal Breast: Normal Back: Normal Abdomen: Normal Genitourinary Exam: Normal Extremities: Normal DTRs: Normal Pelvic Type: Adequate Vital Signs: Reviewed; Within Normal Limits VAGINAL EXAM Contraction Comments: none MEMBRANES Membranes: Intact FETUS A EGA: 28.0 Monitoring: External US FHR- Baseline: 155 Variability: Moderate 6-25bpm Accelerations: 10X10 FHR Category: Category I Presentation: Vertex Admit Comment: at 28.0 wks with poorly controlled cHTN on meds: rule out preeclampsia -B/P severe on arrival but not over 200 systolic. Given IV antihypertensives, restarted oral antihypertensives, labs obtained -P:C 0.3 . She had baseline 24 hour urine in 200s. Repeat 24 hour urine started -Remains asymptomatic - CEFM Cat 1 . Continue NST BID -WIll monitor b/p in house during 24 hour urine test -Out of bed at [facility] -Regular diet -VS q4 hours -Call MD transportation department supervisor for b/p > 160 systolic or >110 diastolic INFORMED CONSENT Signature: with User ID: Parminder : with User ID: Parminder
[2020-02-11 12:52] LABS: HEMATOCRIT 36.2 % (36.0-47.0); HEMOGLOBIN 12.8 g/dL (12.0-15.5); MEAN CORPUSCULAR HEMOGLOBIN 28.7 pg (27.0-33.4); MEAN CORPUSCULAR HGB CONC 35.2 g/dL (32.0-36.0); MEAN CORPUSCULAR VOLUME 82 fl (80-97); PLATELET COUNT 213 10^3/uL (150-450); RED BLOOD COUNT 4.44 10^6/uL (3.72-5.28); RED CELL DISTRIBUTION WIDTH 14.5 % (11.5-14.0); WHITE BLOOD COUNT 9.6 10^3/uL (4.0-10.5)
[2020-02-11 13:09] LABS: ALKALINE PHOSPHATASE 82 U/L (38-126); ANION GAP 9 (5-19); ASPARTATE AMINO TRANSFERASE 23 U/L (14-36); BILIRUBIN,DIRECT 0.2 mg/dL (0.0-0.4); BILIRUBIN,TOTAL 0.6 mg/dL (0.2-1.3); BLOOD UREA NITROGEN 11 mg/dL (7-20); CARBON DIOXIDE 22 mmol/L (22-30); CHLORIDE 104 mmol/L (98-107); GLUCOSE 126 mg/dL (75-110); POTASSIUM 3.2 mmol/L (3.6-5.0); TOTAL PROTEIN 7.6 g/dL (6.3-8.2); URIC ACID 6.6 mg/dL (2.5-7.0)
[2020-02-11] MEDS ORDERED: LABETALOL HCL 200 MG TABLET PO SCH (14:00)
[2020-02-11 15:38] LABS: URINE PROTEIN 14.4 mg/dL (<12)
[2020-02-11 15:53] LABS: 24 HOUR URINE PROTEIN RESULT 461 mg/day (42-225)
[2020-02-11 15:55] LABS: URINE CREATININE 41.4 mg/dL (15-278)
--- NOTE | 2020-02-11 18:12 | PDOC TRANSFER SUMMARY ---
General Admission Date/PCP: 02/10/20 13:06 INDIO KRISHNAMURTHY MD Admission Date: 02/11/20 Transfer Date: 02/11/20 Accepting Facility: [facility] Accepting Physician: Dr. Ely Forbes Resuscitation Status: Full Code - Transfer Diagnosis (1) Chronic hypertension affecting Is this a current diagnosis for this admission?: Yes Diagnosis Summary: poorly controlled CHTN. outpatient management with Labetolol 200mg po TID and Procardia 60mg po BID. BP in office yesterday 220/120s and was sent to Labor and delivery. Pt reported she was not taking Procardia as instructed and provider on that day stabilized patient with several doses of IV meds and then once stable without need for IV meds she was sent to the Floor for 24 hr UTP. Baseline 24 hr UTP was 200. On today 24hr UTP to be up later this afternoon. BPs remained 155/90-100 and Labetolol adjusted to 300mg TID with no response. Pt remains on Procardia XL 60mg BID. (2) Pre-eclampsia superimposed on chronic hypertension Is this a current diagnosis for this admission?: Yes Diagnosis Summary: 24 hr UTP returned as 461mg. Which is diagnostic for Superimpsed preE. However, patient currently stable with baby EFW yesterday on US in office was 2#4oz (11.1%) - anatomy incomplete per report. REviewed patient with Dr. Reese at [facility] and due to superimposed preE and poorly controlled pressures recommendations to transfer and monitor inpatient at [facility] were given. Appreciate Dr. Reese assistance. Appreciate Dr. Forbes acceptance of patient. Will transfer by ground. MED ordered for 1st dose. - Transfer Medications Home Medications: Labetalol HCl [Normodyne 200 mg Tablet] 200 mg PO Q12 10/30/19 Nifedipine [Procardia Xl 30 mg Tablet] 30 mg PO BID 02/10/20 Vit/Dha [ Multi + Dha Capsule] 1 tab PO DAILY 02/10/20 Transfer Medications: Current Medications Labetalol HCl (Normodyne 200 Mg Tablet) 300 mg PO Q8 CARLOTA Stop: 03/12/20 13:59 Last Admin: 02/11/20 14:47 Dose: 300 mg Documented by: Nifedipine (Procardia Xl 30 Mg Tablet) 60 mg PO Q12 CARLOTA Stop: 03/11/20 19:59 Last Admin: 02/11/20 11:21 Dose: 60 mg Documented by: - Allergies Allergies/Adverse Reactions: No Known Allergies Allergy (Verified 02/10/20 10:45) - Diet/Activity Discharge Diet: As Tolerated Discharge Activity: Bedrest Hospital Course Hospital Course: 39yo AA female at 28+1ega sent from the office yesterday with severe range BPs 220/120s and given IV antihypertensives yesterday now with superimpsed preE. PO antihypertenisves adjusted but BPs still 155/100s. Labs are stable and no symptoms at this time. Discussed with patient regarding presentation and dx and concerns and my discussion with MFM and recommendations for transfer to [facility] and monitor there to determine is stable for continued outpatient management and she agrees to transfer. Physical Exam Vital Signs: Temp Pulse Resp BP Pulse Ox 97.7 F 89 16 152/93 H 100 02/11/20 12:31 02/11/20 12:31 02/11/20 12:31 02/11/20 12:31 02/11/20 12:31 Intake & Output 02/10/20 02/11/20 02/12/20 06:59 06:59 06:59 Weight 85.7 kg General appearance: PRESENT: no acute distress, well-developed, well-nourished Head exam: PRESENT: atraumatic, normocephalic Respiratory exam: PRESENT: clear to auscultation debi. ABSENT: rales, rhonchi, wheezes Cardiovascular exam: PRESENT: RRR. ABSENT: diastolic murmur, rubs, systolic murmur Pulses: PRESENT: normal dorsalis pedis pul Vascular exam: PRESENT: normal capillary refill GI/Abdominal exam: PRESENT: normal bowel sounds, soft. ABSENT: distended, guarding, mass, organolmegaly, rebound, tenderness Rectal exam: PRESENT: deferred Extremities exam: PRESENT: full ROM. ABSENT: calf tenderness, clubbing, pedal edema Neurological exam: PRESENT: alert, awake, oriented to person, oriented to place, oriented to time, oriented to situation, CN II-XII grossly intact. ABSENT: motor sensory deficit Psychiatric exam: PRESENT: appropriate affect, normal mood. ABSENT: homicidal ideation, suicidal ideation Skin exam: PRESENT: dry, intact, warm. ABSENT: cyanosis, rash Results Laboratory Results: 02/11/20 12:39 02/11/20 12:39 02/10/20 02/10/20 02/11/20 14:20 14:20 12:39 WBC 9.6 RBC 4.44 Hgb 12.8 Hct 36.2 MCV 82 MCH 28.7 MCHC 35.2 RDW 14.5 H Plt Count 213 Sodium Potassium Chloride Carbon Dioxide Anion Gap BUN Creatinine Est GFR ( Amer) Glucose Uric Acid Calcium Total Bilirubin AST Alkaline Phosphatase Total Protein Albumin Ur 24 Hour Volume 3200 3200 Ur Total Protein 24 Hr 461 H 02/11/20 12:39 WBC RBC Hgb Hct MCV MCH MCHC RDW Plt Count Sodium 135.3 L Potassium 3.2 L Chloride 104 Carbon Dioxide 22 Anion Gap 9 BUN 11 Creatinine 0.70 Est GFR ( Amer) > 60 Glucose 126 H Uric Acid 6.6 Calcium 10.0 Total Bilirubin 0.6 AST 23 Alkaline Phosphatase 82 Total Protein 7.6 Albumin 4.0 Ur 24 Hour Volume Ur Total Protein 24 Hr Status: Imported from PACS Plan Discharge Plan: Transfer to [facility]. Appreciate their assistance with transfer and acceptance.
[2020-02-11] MEDS ORDERED: BETAMET ACET/BETAMET NA INJ 6 MG/1 ML IM ONE (18:19)
[2020-02-11 21:32] VITALS: BP 157/97
== END 2020-02-11 21:33 | disposition home or self-care (01) ==
LOC: LC 10:37 → LR 13:06 → 2S 15:00
PROVIDERS: ADMIT Obstetrics & Gynecology; ATTEND Obstetrics & Gynecology
DX: O11.3 Pre-existing hypertension with pre-eclampsia, third trimester (principal); O10.913 Unspecified pre-existing hypertension complicating pregnancy, third trimester; Z3A.28 28 weeks gestation of pregnancy; Z91.19 Patient's noncompliance with other medical treatment and regimen
CPT/HCPCS: 86900; 86901; 36415 ×2; 82570 ×2; 86850; 83615 ×2; 84156; 84550 ×2; 85025; 85027; 86592; 80053 ×2; 81001; 80307; G0378 ×2; J0360; J3490 ×5; J0702

== ENCOUNTER 2020-02-29 03:53 | Emergency (ER) | payer MEDICAID ==
[2020-02-29] MEDS ORDERED: RINGERS SOLUTION,LACTATED 1,000 ML IV ONE ×2 (04:02→06:50)
[2020-02-29] MEDS ORDERED: METOPROLOL TARTRATE PF/INJ 5 MG/5 ML SDV IV ONE ×2 (04:02→04:18)
--- NOTE | 2020-02-29 04:03 | ER Document Report ---
ED General - General Stated Complaint: HEART RACING Time Seen by Provider: 02/29/20 04:02 Primary Care Provider: INDIO KRISHNAMURTHY MD [ACTIVE PROVISIONAL STAFF] - Follow up as needed TRAVEL OUTSIDE OF THE [place] IN LAST 30 DAYS: No - HPI Notes: 39-year-old female at 30 weeks of gestation, , rising EMS for heart palpitations. Patient reports that she was feeling sick all night, she was having indigestion and some vomiting. She woke up with feelings of palpitations. She called EMS, heart rate noted to be in the 200s on their arrival. No response to vagal maneuvers. She then received 6 mg of adenosine, then 12 mg of adenosine. Her heart rate briefly decreased to 130s-150s, however rebounded again to the 180s. She also received 250 cc LR. No hypotension while in route. Patient reports that she has a history of SVT and this is happened before during her , last occurred when she was around 17 weeks. She states that she did follow-up with [facility] cardiology, no meds prescribed, said that her next appointment would be after she delivers. She reports that she has been on metoprolol in the past. She is additionally been on labetalol in the past for high blood pressure, she is no longer taking this medication either. has been complicated by preeclampsia. Patient denies abdominal pain, cramping, or vaginal bleeding. - Related Data Allergies/Adverse Reactions: No Known Allergies Allergy (Verified 02/10/20 10:45) Past Medical History - General Information source: Patient - Social History Smoking Status: Unknown if Ever Smoked Family History: None, Reviewed & Not Pertinent - Past Medical History Cardiac Medical History: Reports: Hx Hypertension Renal/ Medical History: Denies: Hx Peritoneal Dialysis Past Surgical History: Reports: Hx Section - Immunizations Immunizations up to date: Yes Hx Diphtheria, Pertussis, Tetanus Vaccination: Yes Review of Systems - Review of Systems Constitutional: denies: Chills, Fever EENT: No symptoms reported Cardiovascular: Heart racing. denies: Chest pain Respiratory: denies: Short of breath Gastrointestinal: denies: Abdominal pain Genitourinary: No symptoms reported Female Genitourinary: denies: Vaginal bleeding Musculoskeletal: No symptoms reported Skin: No symptoms reported Neurological/Psychological: No symptoms reported Physical Exam - Vital signs Vitals: Resp Pulse Ox 17 98 02/29/20 03:58 02/29/20 03:58 - General General appearance: Appears well, Alert - HEENT Head: Normocephalic, Atraumatic Eyes: No: Scleral icterus Extraocular movements intact: Yes Pupils: PERRL - Respiratory Respiratory status: No: Tachypnea Breath sounds: Normal - Cardiovascular Rhythm: Tachycardia Heart sounds: Normal auscultation Normal capillary refill: Yes - Abdominal Inspection: Gravid female Tenderness: Nontender - Extremities General lower extremity: No: Edema - Neurological Neuro grossly intact: Yes Cognition: Normal Orientation: AAOx4 - Psychological Associated symptoms: Normal affect - Skin Skin Temperature: Warm Course - Re-evaluation Re-evalutation: 39-year-old female with 30 weeks gestation here with narrow complex tachycardia. She received 6/12 mg adenosine without much response. She has had no hypo- tension. She is mentating appropriately. She is afebrile and otherwise nontoxic appearing. Abdomen is soft. Favor a flutter on EKG. Does not have regular appearance of SVT. Will start with metoprolol I feel the. Give fluid bolus. Check CBC, CMP, magnesium and TSH. Check chest x-ray for consolidation. She does not appear to be edematous, no rales. Will have OB floor bring down monitoring. 02/29/20 04:20 Heart rate with some improvement after metoprolol, will slow to 130s, will repeat IV dose at this time 02/29/20 04:38 Although heart rate has improved after metoprolol IV x2, still remains very tachycardic to 140s, will try Cardizem bolus. BP stable, no hypotension 02/29/20 04:55 HR [id number] following Cardizem 02/29/20 05:13 Heart rate rebounded to 140s, Cardizem drip ordered. As heart rate had slowed, became much more irregular, now favoring A fib RVR I had early discussion with Dr. Walters of [facility] about patient's need for admission, work-up still in progress, intend to consult cardiology. Per Dr. Walters, he states he will refuse admission and not able to take care of this patient, even if cardiology is involved. Recommended admission to another service or transfer. 02/29/20 05:25 I discussed with our hospitalist team, we are in agreement that patient would best be served on an OB service with cardiology consulting, potentially with access to high risk team. I updated the patient on likely need for transfer, offered vitamin versus [facility], she would like to go to [facility] as she has been seen there before. 02/29/20 05:31 Called [facility] to initiate transfer 02/29/20 05:35 heart rate 140s to 150s on monitor 02/29/20 05:43 Chest x-ray without consolidation. 02/29/20 05:[address] Camara at [facility], has accepted the patient in transfer, will go to L&D triage 02/29/20 05:58 Updated patient on plan. Baby continues to have a heart rate monitoring. Patient's heart rate 130s to 140s, will rebolus Cardizem and continue on drip. Blood pressure remained stable. - Vital Signs Vital signs: Temp Pulse Resp BP Pulse Ox 98.7 F 16 129/101 H 99 02/29/20 03:59 02/29/20 05:26 02/29/20 05:26 02/29/20 05:26 - Laboratory Result Diagrams: 02/29/20 04:17 02/29/20 04:17 Laboratory results interpreted by me: 02/29/20 02/29/20 04:17 04:17 WBC 15.8 H Absolute Neuts (auto) 12.4 H Seg Neutrophils % 78.1 H Sodium 132.6 L Potassium 3.5 L Carbon Dioxide 20 L Albumin 3.4 L - Diagnostic Test Radiology reviewed: Image reviewed, Reports reviewed - EKG Interpretation by Me Additional EKG results interpreted by me: 02/29/20 04:06 Initial EKG on arrival to the ED peer interpreted by me. There is a narrow complex tachycardia, appears regularly irregular within clustered groups. I appreciate P waves. Favor a flutter. QTc within normal is. Critical Care Note - Critical Care Note Total time excluding time spent on procedures (mins): 32 Comments: 32 minutes of critical care time spent directly managing A. fib with RVR, multiple reassessments, discussion multiple other providers. Discharge - Discharge Clinical Impression: Atrial fibrillation with RVR, Third trimester Disposition: [facility] Referrals: INDIO KRISHNAMURTHY MD [ACTIVE PROVISIONAL STAFF] - Follow up as needed
[2020-02-29] MEDS ORDERED: DILTIAZEM HCL INJ 25 MG/5 ML VIAL IV ONE ×3 (04:38→06:49)
[2020-02-29 04:43] LABS: ABSOLUTE BASOPHILS # (AUTO) 0.1 10^3/uL (0.0-0.2); ABSOLUTE EOSINOPHILS # (AUTO) 0.1 10^3/uL (0.0-0.6); ABSOLUTE LYMPHOCYTES (AUTO) 2.3 10^3/uL (0.5-4.7); ABSOLUTE NEUT (AUTO) 12.4 10^3/uL (1.7-8.2); BASOPHILS % (AUTO) 0.4 % (0-2); EOSINOPHILS % (AUTO) 0.5 % (0-6); HEMOGLOBIN 12.4 g/dL (12.0-15.5); LYMPHOCYTES % (AUTO) 14.7 % (13-45); MEAN CORPUSCULAR HEMOGLOBIN 28.1 pg (27.0-33.4); MEAN CORPUSCULAR HGB CONC 34.6 g/dL (32.0-36.0); MEAN CORPUSCULAR VOLUME 81 fl (80-97); MONOCYTES % (AUTO) 6.3 % (3-13); PLATELET COUNT 234 10^3/uL (150-450); RED BLOOD COUNT 4.42 10^6/uL (3.72-5.28); RED CELL DISTRIBUTION WIDTH 13.8 % (11.5-14.0); SEGMENTED NEUTROPHILS % (AUTO) 78.1 % (42-78); TOTAL CELLS COUNTED % (AUTO) 100 %; WHITE BLOOD COUNT 15.8 10^3/uL (4.0-10.5)
[2020-02-29 05:06] LABS: ALBUMIN 3.4 g/dL (3.5-5.0); ALKALINE PHOSPHATASE 112 U/L (38-126); ANION GAP 11 (5-19); ASPARTATE AMINO TRANSFERASE 24 U/L (14-36); BILIRUBIN,DIRECT 0.2 mg/dL (0.0-0.4); BILIRUBIN,TOTAL 0.8 mg/dL (0.2-1.3); BLOOD UREA NITROGEN 15 mg/dL (7-20); CALCIUM 10.1 mg/dL (8.4-10.2); CARBON DIOXIDE 20 mmol/L (22-30); CHLORIDE 102 mmol/L (98-107); GLUCOSE 105 mg/dL (75-110); POTASSIUM 3.5 mmol/L (3.6-5.0); TOTAL PROTEIN 6.4 g/dL (6.3-8.2)
[2020-02-29] MEDS ORDERED: DILTIAZEM HCL/D5W 125 MG/125 ML RTUINJ IV PRN (05:06)
[2020-02-29 05:23] LABS: FREE T4 (FREE THYROXINE) 1.48 ng/dL (0.78-2.19)
--- NOTE | 2020-02-29 05:25 | RADIOLOGY REPORT (SQ) ---
CLINICAL HISTORY: eval consolidation COMPARISON: 11/07/2018. TECHNIQUE: XR CHEST 1 VIEW 02/29/2020 4:23 AM CDT FINDINGS: Cardiac silhouette is normal in size. Lungs are clear without consolidation, atelectasis, mass or edema. There is no pleural effusion. There is no pneumothorax. There are no acute osseous findings. IMPRESSION: Clear lungs.
[2020-02-29 05:37] LABS: THYROID STIMULATING HORMONE 1.8 uIU/mL (0.47-4.68)
[2020-02-29 06:59] LABS: APPEARANCE,URINE SLIGHTLY-CLOUDY; BILIRUBIN,URINE NEGATIVE (NEGATIVE); COLOR,URINE YELLOW; GLUCOSE, URINE NEGATIVE (NEGATIVE); KETONES,URINE TRACE mg/dL (NEGATIVE); LEUKOCYTE ESTERASE,URINE MODERATE (NEGATIVE); NITRITE,URINE NEGATIVE (NEGATIVE); PROTEIN,URINE NEGATIVE (NEGATIVE); URINE SPECIFIC GRAVITY 1.003; UROBILINOGEN,URINE NEGATIVE mg/dL (<2.0)
--- NOTE | 2020-02-29 08:37 | EKG REPORT ---
SEVERITY:- ABNORMAL ECG - ATRIAL FIBRILLATION, V-RATE 94-179 ST DEPRESSION, CONSIDER ISCHEMIA, LAT LEADS BORDERLINE PROLONGED QT INTERVAL : Confirmed by: Gemma Stock MD 29-Feb-2020 08:37:02
--- NOTE | 2020-02-29 08:37 | EKG REPORT ---
SEVERITY:- ABNORMAL ECG - ATRIAL FIBRILLATION, V-RATE 129-160 BORDERLINE PROLONGED QT INTERVAL : Confirmed by: Gemma Stock MD 29-Feb-2020 08:36:56
[2020-02-29 08:47] VITALS: BP 130/89
== END 2020-02-29 08:15 | disposition short-term general hospital (02) ==
LOC: ER 03:53
DX: O99.413 Diseases of the circulatory system complicating pregnancy, third trimester (principal); I48.91 Unspecified atrial fibrillation; O16.3 Unspecified maternal hypertension, third trimester; Z3A.30 30 weeks gestation of pregnancy
CPT/HCPCS: 93005; 96376; 99291; 96361; 96375; 96365; 36415; 84439; 83735; 84443; 85025; 80053; 81001; 71045; 93010; J3490 ×3; J7120

== ENCOUNTER 2020-03-14 00:58 | Outpatient (CLI) | payer MEDICAID ==
[2020-03-14 01:05] VITALS: BP 136/94
--- NOTE | 2020-03-14 01:34 | Non Stress Test Report ---
Non Stress Test Datetime Report Generated by CPN: 03/14/2020 01:34 DEMOGRAPHIC EGA NST: 28.0 INDICATION Indication for Study (NST) Other: Provider Order, QShift NST for Severe BPs. VITAL SIGNS Temperature - NST: 98.4 Pulse - NST: 74 RESP - NST: 18 NBPSYS NST: 166 NBPDIA NST: 90 URINE RESULTS Urine Glucose - NST: Positive MONITORING Monitor Explained: Monitor Explained; Test Explained; Patient Verbalized Understanding Time on Monitor: 02/10/2020 10:50 Time off Monitor: 02/10/2020 11:30 NST Duration: 40 NST INTERVENTIONS NST Interventions: None Physician Notified NST: Dr. Mendoza BABY A: [id number] BABY A Movement : Present Contraction Frequency : None FHR Baseline : 145 Accelerations : 15X15 Decelerations : None Variability : Moderate 6-25bpm NST Review: Meets Criteria for Reactive NST NST Review and Verified By : M. Justin RN NST Results: Reactive NST COMMENTS NST Comments: NST appropriate for gestational Age. NST REPORT Report Trigger: Send Report
--- NOTE | 2020-03-14 01:34 | Admission Physical ---
Datetime Report Generated by CPN: 03/14/2020 01:34 CURRENT ADMISSION Chief Complaint: Sent from OB Office for Evaluation and Treatment - Please Specify Chief Complaint Other: who was sent from the office with elevated blood pressures severe range. She has Chronic hypertension and is supposed to be taking Labetolol 200mg TID and Nifedipine 60mg XL BID. She reports she has taken labetalol one time today but usually takes nifedipine only in afternoon/evening and she takes 30mg . She denies BOSS, CP, SOB, RUQ pain, N/v or vision changes. GOod FM Admit Impression : , Intrauterine ; Medical Complication Admit Impression- Other: Poorly controlled cHTN on meds with severe range b/p today. Plan to admit for b/p control and superimposed preeclampsia work up. Admit Plan: Admit to Unit; Observation/Evaluation ALLERGIES Medication Allergies: No Known Allergies (02/10/2020) OBSTETRICAL HISTORY EDC: 05/04/2020 00:00 : 2 Para: 1 Term: 1 : 0 SAB: 0 IAB: 0 [place] PHYSICAL EXAM General: Normal HEENT: Normal Neurologic: Normal Thyroid: Normal Heart: Normal Lungs: Normal Breast: Normal Back: Normal Abdomen: Normal Genitourinary Exam: Normal Extremities: Normal DTRs: Normal Pelvic Type: Adequate Vital Signs: Reviewed; Within Normal Limits VAGINAL EXAM Contraction Comments: none MEMBRANES Membranes: Intact FETUS A EGA: 28.0 Monitoring: External US FHR- Baseline: 155 Variability: Moderate 6-25bpm Accelerations: 10X10 FHR Category: Category I Presentation: Vertex Admit Comment: at 28.0 wks with poorly controlled cHTN on meds: rule out preeclampsia -B/P severe on arrival but not over 200 systolic. Given IV antihypertensives, restarted oral antihypertensives, labs obtained -P:C 0.3 . She had baseline 24 hour urine in 200s. Repeat 24 hour urine started -Remains asymptomatic - CEFM Cat 1 . Continue NST BID -WIll monitor b/p in house during 24 hour urine test -Out of bed at [facility] -Regular diet -VS q4 hours -Call MD photonics technician for b/p > 160 systolic or >110 diastolic INFORMED CONSENT Signature: with User ID: Parminder : with User ID: Parminder
[2020-03-14 02:17] LABS: APPEARANCE,URINE CLEAR; BILIRUBIN,URINE NEGATIVE (NEGATIVE); COLOR,URINE STRAW; GLUCOSE, URINE NEGATIVE (NEGATIVE); KETONES,URINE NEGATIVE (NEGATIVE); LEUKOCYTE ESTERASE,URINE NEGATIVE (NEGATIVE); NITRITE,URINE NEGATIVE (NEGATIVE); PROTEIN,URINE NEGATIVE (NEGATIVE); URINE SPECIFIC GRAVITY 1.002; UROBILINOGEN,URINE NEGATIVE mg/dL (<2.0)
[2020-03-14 02:38] LABS: URINE AMPHETAMINES SCREEN NEGATIVE; URINE BARBITURATES SCREEN NEGATIVE; URINE BENZODIAZEPINES SCREEN NEGATIVE; URINE COCAINE SCREEN NEGATIVE; URINE MARIJUANA (THC) SCREEN NEGATIVE; URINE METHADONE SCREEN NEGATIVE; URINE PHENCYCLIDINE SCREEN NEGATIVE
--- NOTE | 2020-03-14 02:48 | Non Stress Test Report ---
Non Stress Test Datetime Report Generated by CPN: 03/14/2020 02:48 DEMOGRAPHIC EGA NST: 32.5 INDICATION Indication for Study (NST) Other: lc > 32 weeks VITAL SIGNS Temperature - NST: 98.6 Pulse - NST: 111 RESP - NST: 16 NBPSYS NST: 127 NBPDIA NST: 81 MONITORING Monitor Explained: Monitor Explained; Test Explained; Patient Verbalized Understanding Time on Monitor: 03/14/2020 01:47 Time off Monitor: 03/14/2020 02:11 NST Duration: 24 NST INTERVENTIONS NST Interventions: PO Hydration; Reposition Patient Physician Notified NST: dr [email or web address] BABY A Movement : Present Contraction Frequency : 0 FHR Baseline : 145 Accelerations : 15X15 Decelerations : None Variability : Moderate 6-25bpm NST Review: Meets Criteria for Reactive NST NST Review and Verified By : Connor Sanches RN NST Results: Reactive NST REPORT Report Trigger: Send Report
== END 2020-03-14 02:38 | disposition home or self-care (01) ==
LOC: EDSTATUS 01:20 → LC 01:25
PROVIDERS: ATTEND Obstetrics & Gynecology
DX: O26.893 Other specified pregnancy related conditions, third trimester (principal); R00.2 Palpitations; O09.523 Supervision of elderly multigravida, third trimester; Z3A.32 32 weeks gestation of pregnancy; Z87.891 Personal history of nicotine dependence
CPT/HCPCS: 80307; 81001

== ENCOUNTER 2020-03-21 11:03 | Outpatient (CLI) | payer MEDICAID ==
[2020-03-21] MEDS ORDERED: HYDRALAZINE HCL INJ/PF 20 MG/1 ML SDV ONE (11:31)
[2020-03-21] MEDS ORDERED: RINGERS SOLUTION,LACTATED 1,000 ML IV PRN (11:45)
[2020-03-21] MEDS ORDERED: HYDRALAZINE HCL INJ/PF 20 MG/1 ML SDV IV ONE (11:46)
[2020-03-21 11:52] LABS: APPEARANCE,URINE CLOUDY; BILIRUBIN,URINE NEGATIVE (NEGATIVE); COLOR,URINE AMBER; GLUCOSE, URINE NEGATIVE (NEGATIVE); KETONES,URINE TRACE mg/dL (NEGATIVE); LEUKOCYTE ESTERASE,URINE MODERATE (NEGATIVE); NITRITE,URINE NEGATIVE (NEGATIVE); PROTEIN,URINE >=500 mg/dL (NEGATIVE); URINE SPECIFIC GRAVITY 1.027
[2020-03-21 12:01] LABS: URINE AMPHETAMINES SCREEN NEGATIVE; URINE BARBITURATES SCREEN NEGATIVE; URINE BENZODIAZEPINES SCREEN NEGATIVE; URINE COCAINE SCREEN NEGATIVE; URINE MARIJUANA (THC) SCREEN NEGATIVE; URINE METHADONE SCREEN NEGATIVE; URINE PHENCYCLIDINE SCREEN NEGATIVE
[2020-03-21] MEDS ORDERED: NIFEDIPINE 30 MG TAB.ER.24 PO ONE ×2 (12:04→12:45)
[2020-03-21 12:15] LABS: ABSOLUTE LYMPHOCYTES (AUTO) 1.9 10^3/uL (0.5-4.7); ABSOLUTE MONOCYTES (AUTO) 0.6 10^3/uL (0.1-1.4); BASOPHILS % (AUTO) 0.4 % (0-2); EOSINOPHILS % (AUTO) 0.4 % (0-6); HEMATOCRIT 33.3 % (36.0-47.0); LYMPHOCYTES % (AUTO) 22.2 % (13-45); MEAN CORPUSCULAR HEMOGLOBIN 29.3 pg (27.0-33.4); MEAN CORPUSCULAR VOLUME 81 fl (80-97); MONOCYTES % (AUTO) 6.6 % (3-13); PLATELET COUNT 176 10^3/uL (150-450); RED CELL DISTRIBUTION WIDTH 14.2 % (11.5-14.0); SEGMENTED NEUTROPHILS % (AUTO) 70.4 % (42-78); TOTAL CELLS COUNTED % (AUTO) 100 %; WHITE BLOOD COUNT 8.6 10^3/uL (4.0-10.5)
[2020-03-21 12:34] LABS: ALBUMIN 3.2 g/dL (3.5-5.0); ALKALINE PHOSPHATASE 105 U/L (38-126); ANION GAP 10 (5-19); ASPARTATE AMINO TRANSFERASE 25 U/L (14-36); BILIRUBIN,DIRECT 0.3 mg/dL (0.0-0.4); BILIRUBIN,TOTAL 0.7 mg/dL (0.2-1.3); BLOOD UREA NITROGEN 13 mg/dL (7-20); CALCIUM 9.7 mg/dL (8.4-10.2); CARBON DIOXIDE 19 mmol/L (22-30); CHLORIDE 103 mmol/L (98-107); GLUCOSE 85 mg/dL (75-110); TOTAL PROTEIN 6.3 g/dL (6.3-8.2)
== END 2020-03-21 13:25 | disposition home or self-care (01) ==
LOC: LC 11:03
PROVIDERS: ATTEND Obstetrics & Gynecology
DX: O14.93 Unspecified pre-eclampsia, third trimester (principal); Z3A.33 33 weeks gestation of pregnancy
CPT/HCPCS: 36415; 87086; 83615; 84550; 85025; 80053; 81001; 80307; 59025; J0360; J3490